=== PATIENT | female | born 1965 | race Caucasian/White ===

== ENCOUNTER 2019-06-14 09:45 | Outpatient (CLI) | payer BC, MEDICARE, SELFPAY ==
--- NOTE | 2019-06-14 11:00 | NEURO_ITS ---
Patient Number: [id number] Impression: # Complains of increasing numbness of legs. # Neuropathy involving bilateral lower extremities. # Needle/EMG exam revealed decreased motor unit potentials in bilateral EDB. Nerve Conduction Studies Anti Sensory Summary Table Stim Site NR Peak (ms) P-T Amp (?V) Site1 Site2 Delta-P (ms) Dist (cm) Alfonzo (m/s) Left Sup Fibular Anti Sensory (Ant Lat Mall) 14 cm 4.5 13.7 14 cm Ant Lat Mall 4.5 16.0 36 Right Sup Fibular Anti Sensory (Ant Lat Mall) 14 cm 3.9 9.5 14 cm Ant Lat Mall 3.9 16.0 41 Left Sural Anti Sensory (Lat Mall) Calf 4.4 28.3 Calf Lat Mall 3.5 16.0 36 Right Sural Anti Sensory (Lat Mall) Calf 3.7 27.7 Calf Lat Mall 3.7 16.0 43 Motor Summary Table Stim Site NR Onset (ms) O-P Amp (mV) Site1 Site2 Delta-0 (ms) Dist (cm) Alfonzo (m/s) Left Peroneal Motor (Vastus Med) Ankle 5.4 1.3 Popit Ankle 10.1 38.0 38 Popit 15.5 1.1 Right Peroneal Motor (Vastus Med) Ankle 5.1 1.0 Popit Ankle 9.3 35.0 38 Popit 14.4 1.0 Left Tibial Motor (Abd Diane Brev) Ankle 5.7 3.0 Knee Ankle 9.1 41.0 45 Knee 14.8 1.6 Right Tibial Motor (Abd Diane Brev) Ankle 5.5 4.0 Knee Ankle 10.2 41.0 40 Knee 15.7 2.7 F Wave Studies NR F-Lat (ms) L-R F-Lat (ms) Left Peroneal (Mrkrs) (EDB) 52.05 0.23 Right Peroneal (Mrkrs) (EDB) 52.28 0.23 Left Tibial (Mrkrs) (Abd Hallucis) 54.56 0.92 Right Tibial (Mrkrs) (Abd Hallucis) 53.64 0.92 EMG Side Muscle Nerve Root Ins Act Fibs Amp Dur Recrt Comment Right AntTibialis Dp Br Fibular L4-5 Nml Nml Nml Nml Nml Right Gastroc Tibial S1-2 Nml Nml Nml Nml Nml Right Fibularis Long Sup Br Fibular L5-S1 Nml Nml Nml Nml Nml Right Flex Dig Long Tibial L5-S2 Nml Nml Nml Nml Nml Right Ext Dig Brev Dp Br Fibular L5, S1 Nml Nml Nml >12ms Reduced Left AntTibialis Dp Br Fibular L4-5 Nml Nml Nml Nml Nml Left Gastroc Tibial S1-2 Nml Nml Nml Nml Nml Left Fibularis Long Sup Br Fibular L5-S1 Nml Nml Nml Nml Nml Left Flex Dig Long Tibial L5-S2 Nml Nml Nml Nml Nml Left Ext Dig Brev Dp Br Fibular L5, S1 Nml Nml Nml >12ms Reduced Right QuadratusFem QuadFemoris L4-5, S1 Nml Nml Nml Nml Nml Left QuadratusFem QuadFemoris L4-5, S1 Nml Nml Nml Nml Nml MTDD
== END 2019-06-14 09:46 | disposition home or self-care (01) ==
PROVIDERS: PCP Internal Medicine; Visit Provider Psychiatry & Neurology Neurology
DX: M79.606 Pain in leg, unspecified (principal); G62.9 Polyneuropathy, unspecified
CPT/HCPCS: 95886; 95910

== ENCOUNTER → 2021-07-15 11:10 | Outpatient (CLI) | payer BC, MEDICARE, SELFPAY ==
--- NOTE | ~2021-07-15 | XR_ITS ---
XR_CERV2-3V_CR 07/15/2021 12:07 Indication: Radiculopathy. Procedure: 3 views of the cervical spine Comparison: No prior studies for comparison. Findings: No fracture, subluxation or dislocation. Vertebral body heights are maintained. No preverte bral soft tissue swelling. Lung apices are normal. Odontoid process is normal. Impression: 1: No significant abnormality of the cervical spine. Reviewed, dictated and finalized at location A. ROLOGIST Impression: 1: No significant abnormality of the cervical spine.
--- NOTE | ~2021-07-15 | XR_ITS ---
XR lumbar spine 2-3V 07/15/2021 12:06 Indication: Low back pain Procedure: 3 views lumbar spine Comparison: 12/06/2003 Findings: Vertebral body heights are maintained. There is mild dextrocurvature of the lumbar spine. P edicles are intact. Sacral foramen are symmetric. There are cholecystectomy clips. No evidence for sp ondylolisthesis. No significant disc narrowing. Impression: 1: Mild dextroscoliosis. Reviewed, dictated and finalized at location A. ONAL INJURY ATTORNEY Impression: 1: Mild dextroscoliosis.
== END ==
PROVIDERS: PCP Internal Medicine; Visit Provider Pain Medicine Interventional Pain Medicine
DX: F41.1 Generalized anxiety disorder (principal); F33.1 Major depressive disorder, recurrent, moderate; M47.26 Other spondylosis with radiculopathy, lumbar region; M47.22 Other spondylosis with radiculopathy, cervical region; M47.23 Other spondylosis with radiculopathy, cervicothoracic region; M47.27 Other spondylosis with radiculopathy, lumbosacral region
CPT/HCPCS: 72040; 72100

== ENCOUNTER → 2021-07-23 13:23 | Outpatient (CLI) | payer BC, MEDICARE, SELFPAY ==
--- NOTE | ~2021-07-23 | MR_ITS ---
EXAMINATION: MR lumbar spine wo con DATE: 07/23/2021 14:24 INDICATION: Radiculopathy, lumbar spine. TECHNIQUE: Magnetic resonance imaging (MRI) of the lumbar spine was performed without intravenous con trast. Sequences included sagittal T2-weighted FSE, sagittal T2-weighted FS FSE, sagittal T1-weighted FSE, and axial T2-weighted FSE. COMPARISON: Lumbar spine MRI 01/01/2004 FINDINGS: There is an 8 mm cyst in right kidney. Bone alignment is normal. There is mild chronic ante rior wedging of T12 vertebral body. Intervertebral disc heights are normal in lumbar spine. The dista l spinal cord signal intensity is normal. The conus medullaris is at L1. The following disc levels ar e specifically discussed: L1-L2: The disc does not extend beyond the endplate margin. There is mild bilateral facet joint osteo arthritis. There is no neural foraminal stenosis. There is no central canal stenosis. L2-L3: The disc does not extend beyond the endplate margin. There is mild bilateral facet joint osteo arthritis. There is no neural foraminal stenosis. There is no central canal stenosis. L3-L4: The disc is bulging. There is mild bilateral facet joint osteoarthritis. There is mild bilater al neural foraminal stenosis. There is mild central canal stenosis. L4-L5: The disc does not extend beyond the endplate margin. There is severe bilateral facet joint ost eoarthritis. There is mild bilateral neural foraminal stenosis. There is no central canal stenosis. L5-S1: There is a central protrusion with annular fissure. There is severe right and moderate left fa cet joint osteoarthritis. There is mild bilateral neural foraminal stenosis. There is mild central ca nal stenosis. IMPRESSION: 1. Mild lumbar spondylosis, stable from 01/01/2004. Reviewed, dictated and finalized at location A. TRANSFER CLERK
== END ==
PROVIDERS: PCP Internal Medicine; Visit Provider Pain Medicine Interventional Pain Medicine
DX: M47.812 Spondylosis without myelopathy or radiculopathy, cervical region (principal); M47.23 Other spondylosis with radiculopathy, cervicothoracic region; M47.22 Other spondylosis with radiculopathy, cervical region; M47.26 Other spondylosis with radiculopathy, lumbar region; M47.27 Other spondylosis with radiculopathy, lumbosacral region; F33.1 Major depressive disorder, recurrent, moderate; F41.1 Generalized anxiety disorder; G89.4 Chronic pain syndrome
CPT/HCPCS: 72148

== ENCOUNTER → 2021-12-25 15:51 | Outpatient (CLI) | payer BC, MEDICARE, SELFPAY ==
--- NOTE | ~2021-12-25 | MR_ITS ---
EXAMINATION: MR cervical spine wo con DATE: 12/25/2021 16:59 INDICATION: Cervical radiculopathy with neck and bilateral arm pain. TECHNIQUE: Magnetic resonance imaging (MRI) of the cervical spine was performed without intravenous c ontrast. Sequences included sagittal T2-weighted FSE, sagittal T2-weighted FS FSE, sagittal T1-weight ed FSE, axial MERGE and axial T2-weighted FSE. COMPARISON: None FINDINGS: Bone alignment is normal. Vertebral body heights are normal. Bone marrow signal intensity is normal . Annular fissure, disc extrusion and mild disc height loss at C5-C6. Cord signal intensity is normal . Visualized cervical soft tissues are unremarkable. The following disc levels are specifically discu ssed: C2-C3: The disc does not extend beyond the endplate margin. There is no uncovertebral joint osteoarth ritis. There is mild left facet joint osteoarthritis. There is no neural foraminal stenosis. There is no central canal stenosis. C3-C4: The disc does not extend beyond the endplate margin. There is no uncovertebral joint osteoarth ritis. There is mild bilateral facet joint osteoarthritis. There is no neural foraminal stenosis. The re is no central canal stenosis. C4-C5: The disc does not extend beyond the endplate margin. There is mild left uncovertebral joint os teoarthritis. There is mild left and minimal right facet joint osteoarthritis. There is no neural for aminal stenosis. There is no central canal stenosis. C5-C6: Annular fissure with disc extrusion centered at the left paracentral region and with disc mate rial extending up to 2 mm above and 4 mm below level of the inferior endplate of C5 and superior end plate of C6 respectively. The disc extrusion indents the left ventral surface of the cord. There is m ild bilateral uncovertebral joint osteoarthritis. There is minimal right facet joint osteoarthritis. There is mild bilateral neural foraminal stenosis. There is mild central canal stenosis measuring sub -8 mm AP in the mid sagittal plane. C6-C7: Disc is mildly bulging. There is no uncovertebral joint osteoarthritis. There is no facet join t osteoarthritis. There is no neural foraminal stenosis. There is no central canal stenosis. C7-T1: The disc does not extend beyond the endplate margin. There is no uncovertebral joint osteoarth ritis. There is no facet joint osteoarthritis. There is no neural foraminal stenosis. There is no jerica tral canal stenosis. IMPRESSION: 1. Mild cervical spondylosis most notable for left paracentral disc extrusion which mildly narrows th e central canal and indents the left ventral surface of the cord at C5-C6. Reviewed, dictated and finalized at location A. IMPRESSION: 1. Mild cervical spondylosis most notable for left paracentral disc extrusion w hich mildly narrows the central canal and indents the left ventral surface of t he cord at C5-C6.
== END ==
PROVIDERS: PCP Internal Medicine; Visit Provider Pain Medicine Interventional Pain Medicine
DX: M47.22 Other spondylosis with radiculopathy, cervical region (principal)
CPT/HCPCS: 72141

== ENCOUNTER → 2022-01-01 15:19 | Outpatient (CLI) | payer BC, MEDICARE, SELFPAY ==
--- NOTE | ~2022-01-01 | CT_ITS ---
EXAMINATION: CT chest abdomen pelvis w con DATE: 01/01/2022 16:02 INDICATION: Cough and abdominal pain. TECHNIQUE: Computed tomography (CT) of the chest, abdomen, and pelvis was performed with 100 mL Omnip aque 350 intravenous contrast. Automated exposure control and iterative reconstruction technique were employed. The dose-length product was 351.72 mGy-cm. COMPARISON: CT 12/14/2018 FINDINGS: CHEST CT: There is mild atelectasis in right middle lobe. No pleural effusion. The heart size is normal. No per icardial effusion. ABDOMEN/PELVIS CT: The liver is normal. There are changes of cholecystectomy. The spleen, pancreas, and adrenal glands a re normal. There is cortical thinning of the kidneys. There is hypoenhancement of superior pole of ri ght kidney. There are no dilated loops of bowel. The appendix is normal. There are surgical changes o f the stomach. There are no pathologically enlarged lymph nodes. There is no free intraperitoneal flu id. There is mild thoracolumbar spondylosis. IMPRESSION: 1. Hypoenhancement of superior pole of right kidney, consistent with infarct versus pyelonephritis. Reviewed, dictated and finalized at location A. IMPRESSION: 1. Hypoenhancement of superior pole of right kidney, consistent with infarct ve rsus pyelonephritis.
[2022-01-01 15:43] LABS: Estimated Glomerular Filt Rate > 60
== END ==
PROVIDERS: PCP Internal Medicine; Visit Provider Internal Medicine
DX: R10.9 Unspecified abdominal pain (principal); R05.9 Cough, unspecified
CPT/HCPCS: 71260; 74177; Q9967

== ENCOUNTER 2022-01-05 19:02 | Emergency (ER) | payer BC, MEDICARE, SELFPAY ==
[2022-01-05 19:11] VITALS: BP 146/117; PULSE 91; RESP 18; TEMP 36.9; O2SAT 99
[2022-01-05 19:18] LABS: Glucose Point of Care > 500 mg/dl (65-105)
--- NOTE | 2022-01-05 19:27 | ED.RECABL ---
HPI - Recheck/Abnormal Lab/Rx General Chief Complaint: Recheck/Abnormal Lab/Rx Stated Complaint: high blood sugar Time Seen by Provider: 01/05/22 19:22 History of Present Illness HPI narrative: Pt is a 56 y/o female, presents to ED via POV with spouse transporting, with C/O elevated serum glucose, found on outpatient laboratories ordered by her PCP after she noticed her FSBS were reading critical high and she began experiencing urinary frequency for the past week. She denies associated fevers or chills, NVDC or urinary burning. She is taking Metformin 1000 mg BID and denies missing doses. She denies any additional associated symptoms or modifying factors. Related Data Home Medications Medication Instructions Recorded Confirmed metformin 1,000 mg tablet 1,000 mg PO BID 09/26/20 09/26/20 Allergies Allergy/AdvReac Type Severity Reaction Status Date / Time No Known Allergies Allergy Verified 09/26/20 10:35 Review of Systems Constitutional: Comments: denies fevers, chills, weight loss or diaphoresis Gastrointestinal: Comments: no NVDC Genitourinary: Comments: refer to [facility] Family History Family History Father Cerebrovascular accident, Onset Age: 96 Patient's father is Mother Family history of diabetes mellitus in first degree relative Family history of malignant neoplasm of breast in first degree relative, Onset Age: 88 Patient's mother is Social History Social History (Updated 09/26/20 @ 10:38 by Tarah Murdock MA) Smoking status: Current some day smoker Second hand tobacco smoke exposure: No Alcohol intake: never Exam Const: General: no acute distress and alert Orientation/consciousness: patient oriented x3 Limitations: no limitations Other: pt appears older than stated age, pleasant non toxic appearing HENMT: Head: normal to inspection Ears: external ears normal General nose exam: Normal external nose present Other: poor dentition Eyes: Conjunctivae: conjunctivae normal Pupils: Equal, round and reactive pupils present EOM: EOMs intact bilaterally Direct Ophthalmoscopy: no photophobia Neck: Neck: normal visual inspection, no lymphadenopathy and no meningeal signs Resp: Effort & Inspection: normal respiratory effort Auscultation: clear to auscultation bilaterally Cardio: Rate: regular rate Rhythm: regular rhythm GI: GI Palp: Yes Soft to palpation, No Tenderness to palpation present (GI), No Guarding due to palpation present (GI), No Rigid due to palpation, No Hernia present, No Palpable mass present and No Rebound tenderness present Auscultation: normal bowel sounds Back/Spine/Pelvis: Back: no CVA tenderness Course Vital Signs Vital signs: Vital Signs Temperature 36.9 C 01/05/22 19:11 Pulse Rate 91 01/05/22 19:11 Respiratory Rate 18 01/05/22 19:11 Blood Pressure 146/117 H 01/05/22 19:11 Pulse Oximetry 99 01/05/22 19:11 Oxygen Delivery Room Air 01/05/22 19:11 Temperature 36.9 C 01/05/22 19:11 Pulse Rate 66 01/05/22 23:35 Respiratory Rate 13 01/05/22 23:35 Blood Pressure 107/73 01/05/22 23:35 Pulse Oximetry 100 01/05/22 23:35 Oxygen Delivery Room Air 01/05/22 19:11 MDM - Recheck/Abnormal Lab/Rx MDM Narrative Medical decision making narrative: Pt's blood glucose is improving, now < 400 with IVF. Urinary tract infection is present. Pt is offered admission and insulin to treat hyperglycemia however, she refuses; noting she does not want insulin and will not use needles to deliver any medication for diabetes management. She additionally reports she will not take any medications aside from Metformin. She is advised of risks/benefits and her spouse at is also present for this discussion. They agree to FU with Dr Mancini but will sign out AMA as they are not completing recommended treatment. Lab Data Result diagrams:
[2022-01-05] MEDS: SODIUM CHLORIDE 0.9% IV 1,000 ML 999 ML IV CONT ×2 (19:41→21:31)
[2022-01-05 19:46] LABS: Basophils Percent Auto 0.4 % (0.2-1.2); Eosinophils Absolute Auto 0.1 K/mm3 (0-0.3); Eosinophils Percent Auto 0.7 % (0-4.4); Hematocrit 32.5 % (37.0-47.0); Hemoglobin 11.2 g/dL (12.0-15.0); Immature Granulocyte Absolute 0.02 K/mm3 (0.00-0.031); Immature Granulocyte Percent A 0.3 % (0-0.5); Lymphocytes Absolute Auto 3.09 K/mm3 (0.9-3.2); Lymphocytes Percent Auto 42.6 % (18.3-44.2); Mean Corpuscular HGB Conc 34.5 g/dl (32-36); Mean Corpuscular Hemoglobin 28.3 pg (26-34); Mean Corpuscular Volume 82.1 fl (80-100); Mean Platelet Volume 8.7 fl (7.4-10.4); Monocytes Absolute Auto 0.3 K/mm3 (0.1-0.6); Monocytes Percent Auto 4.7 % (2.6-8.5); Neutrophils Absolute Auto 3.7 K/mm3 (1.3-6.7); Neutrophils Percent Auto 51.3 % (45.5-73.1); Platelet Count Result 287 k/mm3 (150-375); Red Blood Count 3.96 M/mm3 (4.2-5.4); Red Cell Distribution Width 12.8 % (11.5-14.5); White Blood Count 7.3 K/mm3 (4.5-10.0)
[2022-01-05 20:06] LABS: Beta-Hydroxybutyrate/Acetoacetate 0.14 mmol/L (0.02-0.27)
[2022-01-05 20:27] LABS: Alanine Aminotransferase 57 U/L (6-35); Albumin Level 3.7 g/dL (3.5-5.1); Alkaline Phosphatase 96 U/L (38-126); Anion Gap 8 mmol/L (8-16); Aspartate Amino Transferase 38 U/L (14-36); Bilirubin,Total 0.5 mg/dL (0.2-1.3); Blood Urea Nitrogen 13 mg/dL (7-17); Calcium 8.9 mg/dL (8.4-10.2); Carbon Dioxide 31 mmol/L (22-30); Chloride 84 mmol/L (98-107); Estimated CRCL calculation 58 ml/min; Estimated Glomerular Filt Rate > 60; Glucose 673 mg/dL (65-110); Magnesium 1.8 mg/dL (1.6-2.3); Phosphorus 3.9 mg/dL (2.5-4.5); Potassium 4.2 mmol/L (3.4-5.0); Sodium 123 mmol/L (137-145)
[2022-01-05 21:31] LABS: Glucose Point of Care 477 mg/dl (65-105)
[2022-01-05 22:37] LABS: Appearance Urine Slightly Cloudy (Clear); Bilirubin Urine Negative (Negative); Blood Urine Negative (Negative); Color Urine Yellow (Yellow); Glucose Urine UA 3+ mg/dL (Negative); Ketones Urine Negative (Negative); Leukocyte Esterase Ur Trace LEU/UL (Negative); Nitrate Urine Positive (Negative); Protein Urine Negative (Negative); Specific Grav Ur <= 1.005 (1.001-1.035); Urobilinogen Urine 0.2 mg/dL (<2.0)
[2022-01-05 22:41] LABS: Bacteria Urine Trace /hpf; Mucus Urine Rare /lpf; Squamous Epithelial Cell Urine Few /hpf (Few); WBC Urine 21-30 /hpf
[2022-01-05 22:58] LABS: Add Urine Microscopic? YES
[2022-01-05 23:35] VITALS: BP 107/73; PULSE 66; PULSE 67; RESP 10; RESP 13; O2SAT 100
[2022-01-05 23:45] VITALS: BP 107/72; PULSE 67; RESP 9; O2SAT 100
--- NOTE | 2022-01-05 23:58 | PC.NURSE ---
Patient refused catheter several times. NATASHA Tabor notified.
[2022-01-06] VITALS: BP 126/84; PULSE 74; RESP 12; O2SAT 100
--- NOTE | 2022-01-06 | PC.NURSE ---
Patient stated to this nurse. I dont want to take any other medications for my diabetes and i will not take insulin EDP notified about this.
[2022-01-06 00:15] VITALS: BP 116/83; PULSE 70; RESP 12
--- NOTE | 2022-01-06 00:27 | PC.NURSE ---
assumed care of pt. pt resting on stretcher at this time.
[2022-01-06 00:30] VITALS: BP 116/84; PULSE 75; RESP 15; O2SAT 100
[2022-01-06 00:31] LABS: Glucose Point of Care 342 mg/dl (65-105)
[2022-01-06 00:45] VITALS: BP 110/81; PULSE 67; RESP 18; O2SAT 100
== END 2022-01-06 01:07 | disposition left against medical advice (07) ==
PROVIDERS: Emergency Provider Nurse Practitioner Family; PCP Internal Medicine
DX: E11.65 Type 2 diabetes mellitus with hyperglycemia (principal); N39.0 Urinary tract infection, site not specified; Z79.84 Long term (current) use of oral hypoglycemic drugs; F17.200 Nicotine dependence, unspecified, uncomplicated
CPT/HCPCS: 36415; 80053; 81001; 82010; 82948; 83735; 84100; 85025; 87077; 87086; 87186; 96361; 96365; 99284; J0696; J7030

== ENCOUNTER 2022-02-20 18:20 | Emergency (ER) | payer BC, MEDICARE, SELFPAY ==
[2022-02-20] VITALS (19 sets, daily range): BP systolic 146–165; BP diastolic 90–115; PULSE 92–116; RESP 13–25; TEMP 36.5; O2SAT 92–100
--- NOTE | ~2022-02-20 | XR_ITS ---
EXAMINATION: XR chest 1V Exam Date/Time: 02/20/2022 19:15 CDT HISTORY: weakness Comparison: 10/01/2010. RESULT: Lines, tubes, and devices: None. Lungs and pleura: Clear. Cardiomediastinal silhouette: Stable. Other: No acute osseous or upper abdominal finding. IMPRESSION: No acute cardiopulmonary process. Reviewed, dictated and finalized at location K.
--- NOTE | ~2022-02-20 | XR_ITS ---
EXAM: XR hip LT 2V w AP pelvis DATE: 02/20/2022 19:21 HISTORY: fall . COMPARISON: 12/06/2003. FINDINGS: Normal mineralization. No fracture or dislocation. No lytic or blastic lesion. Mild degene rative changes in the lumbar spine and bilateral hips. Iliac wing enthesopathy. No erosion or periost eal change. Soft tissues within normal limits. IMPRESSION: No acute osseous finding in the pelvis or left hip. Reviewed, dictated and finalized at location K.
--- NOTE | ~2022-02-20 | CT_ITS ---
EXAMINATION: CT brain wo con DATE: 02/20/2022 19:17 INDICATION: head injury . TECHNIQUE: Computed tomography (CT) of the head was performed without intravenous contrast. The mA wa s adjusted according to patient size. Iterative reconstruction technique was employed. The dose-lengt h product was 605.33 mGy-cm. COMPARISON: 12/14/2018 FINDINGS: No acute intracranial hemorrhage or extra-axial fluid collection. No hydrocephalus, mass, or herniation. No acute ischemic infarct. Unremarkable dural venous sinus attenuation. No acute osseous abnormality. Soft tissue swelling over the left orbit. The aerated spaces are clear. Mild atrophy and chronic white matter change. Atherosclerotic intracranial calcification. Right parie lorenzo encephalomalacia, near the vertex. IMPRESSION: No acute intracranial process. Reviewed, dictated and finalized at location K.
--- NOTE | 2022-02-20 18:33 | PC.NURSE ---
Bedside Glucose 202 at 1823
--- NOTE | 2022-02-20 18:51 | ECG_ITS ---
Measurements Intervals [place] Rate: 96 P: 76 [place]: 143 QRS: 60 QRSD: 94 T: 80 QT: 364 QTc: 462 Interpretive Statements SINUS RHYTHM WITHIN NORMAL LIMITS NO PREVIOUS ECG AVAILABLE FOR COMPARISON Electronically Signed On 02-21-2022 10:17:10 CDT by Prieto Sr M.D.
[2022-02-20] MEDS: LACTATED RINGERS 1,000 ML 999 ML IV CONT (19:26)
[2022-02-20 19:39] LABS: Basophils Percent Auto 0.2 % (0.2-1.2); Eosinophils Percent Auto 0.1 % (0-4.4); Hematocrit 37.8 % (37.0-47.0); Hemoglobin 12.5 g/dL (12.0-15.0); Immature Granulocyte Absolute 0.03 K/mm3 (0.00-0.031); Immature Granulocyte Percent A 0.3 % (0-0.5); Lymphocytes Absolute Auto 1.91 K/mm3 (0.9-3.2); Lymphocytes Percent Auto 21.7 % (18.3-44.2); Mean Corpuscular HGB Conc 33.1 g/dl (32-36); Mean Corpuscular Hemoglobin 28.3 pg (26-34); Mean Corpuscular Volume 85.7 fl (80-100); Mean Platelet Volume 7.9 fl (7.4-10.4); Monocytes Absolute Auto 0.3 K/mm3 (0.1-0.6); Monocytes Percent Auto 3.9 % (2.6-8.5); Neutrophils Absolute Auto 6.5 K/mm3 (1.3-6.7); Neutrophils Percent Auto 73.8 % (45.5-73.1); Platelet Count Result 312 k/mm3 (150-375); Red Blood Count 4.41 M/mm3 (4.2-5.4); Red Cell Distribution Width 13.2 % (11.5-14.5); White Blood Count 8.8 K/mm3 (4.5-10.0)
[2022-02-20 19:51] LABS: Partial Thromboplastin Time 27.2 SECONDS (22.3-36.8)
[2022-02-20 19:53] LABS: Ethanol < 10 mg/dL (<10)
[2022-02-20 20:07] LABS: Add Urine Microscopic? YES; Appearance Urine Cloudy (Clear); Bacteria Urine Trace /hpf; Bilirubin Urine Negative (Negative); Blood Urine Negative (Negative); Color Urine Yellow (Yellow); Glucose Urine UA 1+ mg/dL (Negative); Ketones Urine Negative (Negative); Leukocyte Esterase Ur Negative LEU/UL (Negative); Mucus Urine Rare /lpf; Nitrate Urine Positive (Negative); Protein Urine Negative (Negative); RBC Urine 0-2 /hpf (0-2); Urobilinogen Urine Negative mg/dL (<2.0); WBC Urine 0-3 /hpf
[2022-02-20 20:10] LABS: INR 0.9
[2022-02-20 20:11] LABS: Glucose Point of Care 96 mg/dl (65-105)
[2022-02-20 20:17] LABS: Alanine Aminotransferase 51 U/L (6-35); Albumin Level 4.4 g/dL (3.5-5.1); Alkaline Phosphatase 120 U/L (38-126); Anion Gap 8 mmol/L (8-16); Aspartate Amino Transferase 73 U/L (14-36); Bilirubin,Total 0.4 mg/dL (0.2-1.3); Blood Urea Nitrogen 13 mg/dL (7-17); Calcium 9.1 mg/dL (8.4-10.2); Carbon Dioxide 30 mmol/L (22-30); Chloride 95 mmol/L (98-107); Creatine Kinase 345 U/L (30-135); Estimated Glomerular Filt Rate > 60; Glucose 125 mg/dL (65-110); Magnesium 1.5 mg/dL (1.6-2.3); Sodium 133 mmol/L (137-145)
--- NOTE | 2022-02-20 20:23 | ED.RECABL ---
HPI - Recheck/Abnormal Lab/Rx General Chief Complaint: Recheck/Abnormal Lab/Rx Stated Complaint: low blood sugar Time Seen by Provider: 02/20/22 18:30 Source: patient, family and RN notes reviewed Mode of arrival: EMS History of Present Illness HPI narrative: This is a 56 year old female with history of DM and CVA who presents from home for evaluation of low blood sugar. Patient lives at home with her . He states patient woke up with him at 4 am this morning. He states he cooked her breakfast and she was fine, so he left for work. He got home from work this afternoon and he found patient on floor. He states it appearred that she slid out of her recliner and she was confused. He called EMS and she was found to have blood sugar of 49. EMS gave patient d10 and nurse reports her blood sugar is 210. Patient is unsure what happened. She does not remember when she last ate anything. She was in ER 5 weeks ago for hyperglycemia, and she left ER AMA. Her states she was recently seen by her PCP And they increased her night dose of insulin from 25 units to 35 units. They also reports patient fell 2 days ago and she was confused briefly. She was back to normal after taking a nap. He states she was normal this morning. Patient's only complaint is that she is cold. Related Data Home Medications Medication Instructions Recorded Confirmed metformin 1,000 mg tablet 1,000 mg PO BID 09/26/20 09/26/20 alprazolam 2 mg tablet mg 02/20/22 cyclobenzaprine 10 mg tablet mg 02/20/22 dextroamphetamine-amphetamine 30 02/20/22 mg tablet insulin degludec 100 unit/mL (3 unit subcut 02/20/22 mL) subcutaneous pen (Tresiba FlexTouch U-100 insulin) lamotrigine 150 mg tablet mg 02/20/22 levothyroxine 100 mcg tablet mcg 02/20/22 oxcarbazepine 150 mg tablet mg 02/20/22 Allergies Allergy/AdvReac Type Severity Reaction Status Date / Time No Known Allergies Allergy Verified 02/20/22 21:04 Review of Systems Review of Systems: ROS unobtainable: Yes unobtainable due to mental status Constitutional: Constitutional: Reports chills ENT: Denies nasal congestion Cardiovascular: Cardiovascular: Denies chest pain, Denies radiating jaw, neck or arm pain and Denies slow heart rate Respiratory: Respiratory: Denies chest congestion, Denies cough and Denies dyspnea Gastrointestinal: Gastrointestinal: Denies abdominal pain, Denies nausea and Denies vomiting [facility] Past Medical History Medical History CVA (cerebral vascular accident) Diabetes mellitus Family History Family History Father Cerebrovascular accident, Onset Age: 96 Patient's father is Mother Family history of diabetes mellitus in first degree relative Family history of malignant neoplasm of breast in first degree relative, Onset Age: 88 Patient's mother is Social History Social History (Updated 09/26/20 @ 10:38 by Tarah Murdock MA) Smoking status: Current some day smoker Second hand tobacco smoke exposure: No Alcohol intake: never Exam Const: General: no acute distress and alert Nutritional Appearance: thin Orientation/consciousness: patient oriented x3 HENMT: Head: normal to inspection Ears: external ears normal Mouth: Yes lip normal and Yes moist mucous membranes Teeth and gingiva: abnormal tooth and associated gingiva Eyes: Conjunctivae: conjunctivae normal Pupils: Equal, round and reactive pupils present EOM: EOMs intact bilaterally Neck: Neck: normal visual inspection Chest: Chest palpation & inspection: normal inspection of the chest Resp: Effort & Inspection: normal respiratory effort Auscultation: clear to auscultation bilaterally Cardio: Rate: regular rate Rhythm: regular rhythm Heart sounds: no murmurs GI: GI Palp: Yes Soft to palpation, No Tende
[2022-02-20 20:26] LABS: Influenza A QL RT-PCR Negative (Negative); Influenza B QL RT-PCR Negative (Negative); SARS-CoV-2 RNA PCR Negative
[2022-02-20 20:29] LABS: Troponin I < 0.012 ng/mL (0.000-0.034)
[2022-02-20 20:30] LABS: Amphetamine Screen Urine Negative (Negative); Barbiturate Screen Urine Negative (Negative); Benzodiazepines Screen Urine Negative (Negative); Cannabinoid Screen Urine Positive (Negative); Cocaine Screen Urine Negative (Negative); Methadone Screen Urine Negative (Negative); Opiate Screen Urine Negative (Negative); Phencyclidine Screen Urine Negative (Negative)
[2022-02-20 20:53] LABS: Lactic Acid Reflex 1.4 mmol/L (0.7-2.0)
[2022-02-20 21:42] LABS: Glucose Point of Care 115 mg/dl (65-105)
--- NOTE | 2022-02-20 21:55 | PC.NURSE ---
PCT administered road test in hallway per MD orders. Pt successfully ambulated in hallway, pt was not symptomatic while walking, RN and MD notified.
[2022-02-20] MEDS: MAGNESIUM OXIDE 200 MG TABLET PO (22:17)
[2022-02-20] MEDS: NITROFURANTOIN MONOHYD MACROCR 100 MG CAP PO (22:17)
[2022-02-20] MEDS: oxyCODONE/ACETAMINOPHEN (*CRX) 5-325 MG TABLET 1 TABLET PO (22:17)
== END 2022-02-20 23:22 | disposition home or self-care (01) ==
PROVIDERS: Emergency Provider General Practice; PCP Internal Medicine
DX: E11.649 Type 2 diabetes mellitus with hypoglycemia without coma (principal); R29.6 Repeated falls; Z20.822 Contact with and (suspected) exposure to COVID-19; Z86.73 Personal history of transient ischemic attack (TIA), and cerebral infarction without residual deficits; F17.200 Nicotine dependence, unspecified, uncomplicated; Z79.84 Long term (current) use of oral hypoglycemic drugs; Z79.4 Long term (current) use of insulin
CPT/HCPCS: 36415; 70450; 71045; 73502; 80053; 80307; 81001; 82550; 82948; 83605; 83735; 84484; 85025; 85610; 85730; 87077; 87086; 87186; 87502; 93005; 96360; 96361; 99284; A9270; C9803; J7120; U0003; U0005

== ENCOUNTER 2022-02-23 22:35 | Observation (INO) | payer BC, MEDICARE, SELFPAY ==
--- NOTE | ~2022-02-23 | MR_ITS ---
EXAMINATION: MR lumbar spine wo con DATE: 02/26/2022 13:03 INDICATION: Gait dysfunction. TECHNIQUE: Magnetic resonance imaging (MRI) of the lumbar spine was performed without intravenous con trast. COMPARISON: Lumbar spine MRI 07/23/2021 FINDINGS: There is 6 degrees dextrocurvature of thoracolumbar spine. There are Schmorl's nodes at mul tiple levels. There is mild chronic anterior wedging of T12 vertebral body. Intervertebral disc heigh ts are normal. The distal spinal cord signal intensity is normal. The conus medullaris is at L1. The following disc levels are specifically discussed: L1-L2: The disc does not extend beyond the endplate margin. There is mild bilateral facet joint osteo arthritis. There is no neural foraminal stenosis. There is no central canal stenosis. L2-L3: The disc does not extend beyond the endplate margin. There is mild bilateral facet joint osteo arthritis. There is no neural foraminal stenosis. There is no central canal stenosis. L3-L4: The disc is bulging. There is moderate bilateral facet joint osteoarthritis. There is mild jacki ateral neural foraminal stenosis. There is no central canal stenosis. L4-L5: The disc does not extend beyond the endplate margin. There is severe bilateral facet joint ost eoarthritis. There is no neural foraminal stenosis. There is no central canal stenosis. L5-S1: The disc is bulging and has an annular fissure. There is severe bilateral facet joint osteoart hritis. There is mild bilateral neural foraminal stenosis. There is mild central canal stenosis. IMPRESSION: 1. Mild lumbar spondylosis, stable from 07/23/2021. Reviewed, dictated and finalized at location A.
--- NOTE | ~2022-02-23 | MR_ITS ---
EXAMINATION: MR thoracic spine wo con DATE: 02/26/2022 13:04 INDICATION: Gait dysfunction. TECHNIQUE: Magnetic resonance imaging (MRI) of the thoracic spine was performed without intravenous c ontrast. COMPARISON: None FINDINGS: There is 14 degrees levoscoliosis of thoracic spine. There is a chronic compression fractur e of T3 with 1/5 loss of height. There are Schmorl's nodes at multiple levels in lower thoracic spine . There is mild chronic anterior wedging of T10-T12 vertebral bodies. There is mildly decreased disc height at T7-T8 and T8-T9. At T2-T3, there is a right central protrusion with mild central canal sten osis. At T7-T8, there is a central extrusion with mild central canal stenosis and ventral indentation of the spinal cord. At T8-T9, there is a central extrusion with mild central canal stenosis and vent ral indentation of the spinal cord. At T9-T10, there is a left central extrusion with mild central ca nal stenosis. There is multilevel facet joint osteoarthritis, severe on the right at T4-T5 and T5-T6 and on the left at T1-T2 and T7-T8. On the right, there is mild neural foraminal stenosis at T2-T3, T 4-T5, T5-T6, and T7-T8. On the left, there is mild neural foraminal stenosis at T7-T8. The spinal cor d signal intensity is normal. IMPRESSION: 1. Mild thoracic spondylosis. 2. Thoracic levoscoliosis. Reviewed, dictated and finalized at location A.
--- NOTE | ~2022-02-23 | MR_ITS ---
EXAMINATION: MR brain/brain stem wo con DATE: 02/26/2022 13:03 INDICATION: Gait dysfunction. Dysmetria. TECHNIQUE: Magnetic resonance imaging (MRI) of the brain and brainstem was performed intravenous cont rast. COMPARISON: Brain MRI 10/07/2009 FINDINGS: There is a small old infarct in right cerebellum. There is an old infarct in right parietal lobe. There is no intracranial hemorrhage, acute infarction, or abnormal intracranial mass lesion. T he ventricles are normal in size. There are likely changes of ocular lens replacement surgeries. Ther e is mild mucosal thickening in the ethmoid sinuses. The mastoid air cells are normal. IMPRESSION: 1. 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 Reviewed, dictated and finalized at location A.
--- NOTE | ~2022-02-23 | XR_ITS ---
EXAMINATION: XR chest 1V portable DATE: 02/23/2022 23:10 INDICATION: Weakness. TECHNIQUE: A single frontal view of the chest was obtained. COMPARISON: Chest single view 02/20/2022 FINDINGS: There is no pneumonia, pleural effusion, or pneumothorax. The heart size is normal. Skinfol ds overlie the chest bilaterally. Surgical clips in the right upper quadrant are likely from cholecys tectomy. IMPRESSION: 1. No acute cardiopulmonary disease. Reviewed, dictated and finalized at location A.
--- NOTE | ~2022-02-23 | MR_ITS ---
EXAMINATION: MR cervical spine wo con DATE: 02/26/2022 13:03 INDICATION: Gait dysfunction. TECHNIQUE: Magnetic resonance imaging (MRI) of the cervical spine was performed without intravenous c ontrast. Sequences included sagittal T2-weighted FSE, sagittal T2-weighted FS FSE, sagittal T1-weight ed FSE, axial MERGE, and axial T2-weighted FSE. COMPARISON: Cervical spine MRI 12/25/2021 FINDINGS: There is 10 degrees dextroscoliosis of cervicothoracic spine. Vertebral body heights are no rmal. There is mildly decreased disc height at C5-C6. There is increased T2-weighted signal intensity in the spinal cord at C5-C6. The following disc levels are specifically discussed: C2-C3: The disc does not extend beyond the endplate margin. There is no uncovertebral joint osteoarth ritis. There is no facet joint osteoarthritis. There is no neural foraminal stenosis. There is no jerica tral canal stenosis. C3-C4: The disc does not extend beyond the endplate margin. There is no uncovertebral joint osteoarth ritis. There is mild left facet joint osteoarthritis. There is no neural foraminal stenosis. There is no central canal stenosis. C4-C5: There is a central extrusion. There is mild bilateral uncovertebral joint osteoarthritis. Ther e is mild left facet joint osteoarthritis. There is mild bilateral neural foraminal stenosis. There i s mild central canal stenosis. C5-C6: The disc is bulging with superimposed left central extrusion. There is moderate bilateral unco vertebral joint osteoarthritis. There is mild bilateral facet joint osteoarthritis. There is mild rig ht and moderate left neural foraminal stenosis. There is moderate central canal stenosis with ventral and dorsal indentation of the spinal cord. C6-C7: There is a central protrusion. There is no uncovertebral joint osteoarthritis. There is mild l eft facet joint osteoarthritis. There is no neural foraminal stenosis. There is no central canal sten osis. C7-T1: The disc does not extend beyond the endplate margin. There is no uncovertebral joint osteoarth ritis. There is no facet joint osteoarthritis. There is no neural foraminal stenosis. There is no jerica tral canal stenosis. IMPRESSION: 1. Myelomalacia at C5-C6. 2. Moderate cervical spondylosis, worst at C5-C6. Reviewed, dictated and finalized at location A.
[2022-02-23 22:34] VITALS: BP 146/100; PULSE 108; RESP 23; TEMP 36.4; O2SAT 97
[2022-02-23 22:43] LABS: Glucose Point of Care 164 mg/dl (65-105)
[2022-02-23 23:38] LABS: Basophils Percent Auto 0.2 % (0.2-1.2); Eosinophils Absolute Auto 0.1 K/mm3 (0-0.3); Eosinophils Percent Auto 0.6 % (0-4.4); Hematocrit 38.2 % (37.0-47.0); Hemoglobin 12.7 g/dL (12.0-15.0); Immature Granulocyte Absolute 0.03 K/mm3 (0.00-0.031); Immature Granulocyte Percent A 0.4 % (0-0.5); Lymphocytes Absolute Auto 1.49 K/mm3 (0.9-3.2); Lymphocytes Percent Auto 17.8 % (18.3-44.2); Mean Corpuscular HGB Conc 33.2 g/dl (32-36); Mean Corpuscular Hemoglobin 28.3 pg (26-34); Mean Corpuscular Volume 85.3 fl (80-100); Mean Platelet Volume 7.9 fl (7.4-10.4); Monocytes Absolute Auto 0.3 K/mm3 (0.1-0.6); Monocytes Percent Auto 3.8 % (2.6-8.5); Neutrophils Absolute Auto 6.5 K/mm3 (1.3-6.7); Neutrophils Percent Auto 77.2 % (45.5-73.1); Platelet Count Result 312 k/mm3 (150-375); Red Blood Count 4.48 M/mm3 (4.2-5.4); Red Cell Distribution Width 13.1 % (11.5-14.5); White Blood Count 8.4 K/mm3 (4.5-10.0)
[2022-02-23 23:52] LABS: Anion Gap 12 mmol/L (8-16); Blood Urea Nitrogen 18 mg/dL (7-17); Calcium 8.7 mg/dL (8.4-10.2); Carbon Dioxide 28 mmol/L (22-30); Chloride 94 mmol/L (98-107); Estimated CRCL calculation 82 ml/min; Estimated Glomerular Filt Rate > 60; Glucose 280 mg/dL (65-110); Potassium 3.9 mmol/L (3.4-5.0); Sodium 134 mmol/L (137-145)
[2022-02-23] MEDS: SODIUM CHLORIDE 0.9% IV 1,000 ML 999 ML IV CONT (23:59)
[2022-02-24 00:08] LABS: Add Urine Microscopic? YES; Appearance Urine Clear (Clear); Bacteria Urine Trace /hpf; Bilirubin Urine Negative (Negative); Blood Urine 1+ (Negative); Color Urine Yellow (Yellow); Glucose Urine UA Negative (Negative); Ketones Urine Negative (Negative); Leukocyte Esterase Ur Negative LEU/UL (Negative); Mucus Urine Rare /lpf; Nitrate Urine Positive (Negative); Protein Urine Negative (Negative); RBC Urine 0-2 /hpf (0-2); Specific Grav Ur 1.019 (1.001-1.035); Urobilinogen Urine Negative mg/dL (<2.0)
--- NOTE | 2022-02-24 00:15 | ED.GENADULT ---
HPI - General Adult General Chief complaint: Recheck/Abnormal Lab/Rx Stated complaint: HYPOGLYCEMIA Time Seen by Provider: 02/23/22 22:46 History of Present Illness HPI narrative: Patient is a 56-year-old female who presents ER with diabetic emergency. Blood sugar at home 37 and patient received D10. Blood sugar for EMS 299 after dextrose administration. Patient reports she took some insulin and metformin this evening without eating. Denies fevers chills or sweats. No abdominal pain or nausea or vomiting. Patient has history of CVA reports she has some chronic weakness related to this. Patient is underweight and has areas of bruising to the body as well as multiple skin sores. Patient denies intravenous drug abuse. Related Data Home Medications Medication Instructions Recorded Confirmed metformin 1,000 mg tablet 1,000 mg PO BID 09/26/20 09/26/20 alprazolam 2 mg tablet mg 02/20/22 cyclobenzaprine 10 mg tablet mg 02/20/22 dextroamphetamine-amphetamine 30 02/20/22 mg tablet insulin degludec 100 unit/mL (3 unit subcut 02/20/22 mL) subcutaneous pen (Tresiba FlexTouch U-100 insulin) lamotrigine 150 mg tablet mg 02/20/22 levothyroxine 100 mcg tablet mcg 02/20/22 oxcarbazepine 150 mg tablet mg 02/20/22 Allergies Allergy/AdvReac Type Severity Reaction Status Date / Time No Known Allergies Allergy Verified 02/23/22 22:42 Review of Systems Review of Systems: All systems reviewed & are unremarkable except as noted in HPI and below Constitutional: Constitutional: Denies chills, Denies fatigue and Denies fever(s) ENT: Denies nasal congestion and Denies sore throat Cardiovascular: Cardiovascular: Denies chest pain, Denies rapid heart rate and Denies radiating jaw, neck or arm pain Respiratory: Respiratory: Denies cough, Denies dyspnea and Denies wheezing Gastrointestinal: Gastrointestinal: Denies abdominal pain, Denies nausea and Denies vomiting Genitourinary: Genitourinary: Denies nocturia and Denies dysuria Musculoskeletal: Musculoskeletal: Reports back pain (Chronic), Denies arthralgias and Denies joint swelling Integumentary/Breasts: Skin/Breast: Denies erythema, Denies rash and Reports skin ulcer Comments: Scattered bruising PMFSH Past Medical History Medical History (Updated 02/24/22 @ 04:44 by Candido Hall MD) Anxiety CVA (cerebral vascular accident) Depression Diabetes mellitus Hyperlipidemia Hypertension Hypothyroidism Surgical History Surgical History History of cholecystectomy History of gastric bypass Family History Family History Father Cerebrovascular accident, Onset Age: 96 Patient's father is Mother Family history of diabetes mellitus in first degree relative Family history of malignant neoplasm of breast in first degree relative, Onset Age: 88 Patient's mother is Social History Social History Smoking status: Current some day smoker Second hand tobacco smoke exposure: No Alcohol intake: never Exam Narrative: GENERAL: Chronically ill-appearing, thin, and in no acute distress. HEAD: Normocephalic, atraumatic. EYES: PERRL and EOMI. ENT: Mucous membranes moist. CHEST: Clear to auscultation. No respiratory distress. HEART: Tachycardic and regular. Normal peripheral pulses. ABDOMEN: Soft, nontender, nondistended. EXTREMITIES: Atrophy of the muscles of the arms and legs. Patient unable to stand due to chronic weakness. No lower extremity edema. SKIN: Warm, dry, no rash. Scattered bruising to the extremities worse on the legs. Upper extremities with multiple skin abrasions/ulcerations from either picking or falling. NEURO: Mild slurring of speech that is chronic. No facial droop. Alert and oriented x3. PSYCH: Normal mood and af
--- NOTE | 2022-02-24 00:18 | PC.NURSE ---
Pt daughter, Irene, voicing concerns about her mother. Pt was seen Tuesday for hypoglycemia and pt stated no provider went over results with pt or family. Family concerned for pt's welfare. From pt's understanding pt has bad UTI but has not been explained lab results, cat scans or any results.
[2022-02-24 00:47] LABS: Glucose Point of Care 102 mg/dl (65-105)
[2022-02-24 02:57] VITALS: BP 141/100; PULSE 102; RESP 21; O2SAT 95
--- NOTE | 2022-02-24 02:58 | PC.NURSE ---
per pt's family. Pt is unable to get up and safely walk at this time.
--- NOTE | 2022-02-24 02:58 | PC.NURSE ---
Pt was using bedside commode and this RN entered room pt was standing up but very unstable on feet. Pt was instructed to call for RN when standing up. This RN had to assist pt back to bed safely. Pt moaning in bed and states their back hurts.
[2022-02-24 03:29] LABS: Glucose Point of Care 86 mg/dl (65-105)
--- NOTE | 2022-02-24 04:00 | PC.NURSE ---
Pt had 3 unmeasured incontinent bowel movements. Pt stated they needed to use bedside commode. When this RN stood pt up to use bedside commode pt had large incontinent BM while standing up that splattered over floor.
--- NOTE | 2022-02-24 04:03 | PM.IMHP ---
H&P: HPI History of Present Illness Date/Time: 02/24/22 04:03 Chief Complaint: 56 years old female with past medical history of diabetes mellitus on insulin stroke presented to the hospital with weakness worsening gradually associated with multiple walks associated with difficulty with walking associated with skin bruises patient also was found to have blood sugar of 37 was given D10 with improvement in her blood sugar patient had multiple falls and generalized treated with difficulty with walking test pain going on for a while and worsening patient will be admitted to the hospital for evaluation and treatment of multiple fall generalized weakness hypoglycemia also UA was abnormal patient recently treated for UTI secondary to E coli sensitive to Rocephin Patient also has treated the source of diarrhea foul smelling in the ER denies any diarrhea at home Patient is poor historian Review of Systems Review of Systems: Twelve system review was done was negative except above PMFSH Past Medical History Medical History (Updated 02/24/22 @ 04:24 by Alhaji Flores MD) Anxiety CVA (cerebral vascular accident) Depression Diabetes mellitus Hyperlipidemia Hypertension Hypothyroidism Surgical History Surgical History History of cholecystectomy History of gastric bypass Family History Family History Father Cerebrovascular accident, Onset Age: 96 Patient's father is Mother Family history of diabetes mellitus in first degree relative Family history of malignant neoplasm of breast in first degree relative, Onset Age: 88 Patient's mother is Social History Social History Smoking status: Current some day smoker Second hand tobacco smoke exposure: No Alcohol intake: never Meds Home Medications and Allergies Home Medications Medication Instructions Recorded Confirmed Type metformin 1,000 mg tablet 1,000 mg PO BID 09/26/20 09/26/20 History oxycodone 15 mg tablet 15 mg PO Q6H PRN pain (scale score 01/20/21 Rx 7-10) #120 tabs alprazolam 2 mg tablet mg 02/20/22 History cyclobenzaprine 10 mg tablet mg 02/20/22 History dextroamphetamine-amphetamine 30 02/20/22 History mg tablet insulin degludec 100 unit/mL (3 unit subcut 02/20/22 History mL) subcutaneous pen (Tresiba FlexTouch U-100 insulin) lamotrigine 150 mg tablet mg 02/20/22 History levothyroxine 100 mcg tablet mcg 02/20/22 History nitrofurantoin 100 mg PO Q12H 3 days #6 caps 02/20/22 Rx monohydrate/macrocrystals 100 mg capsule (Macrobid) oxcarbazepine 150 mg tablet mg 02/20/22 History Allergies Allergy/AdvReac Type Severity Reaction Status Date / Time No Known Allergies Allergy Verified 02/23/22 22:42 Vital Signs Vital Signs - 24 hr 02/23/22 22:34 02/24/22 02:57 Temperature 97.5 F L Pulse Rate 108 H 102 H Respiratory Rate 23 H 21 H Blood Pressure 146/100 H 141/100 H Pulse Oximetry 97 95 Oxygen Delivery Room Air Exam Narrative: GENERAL: Well appearing, well-nourished, non-toxic, in no acute distress. HEAD: Normocephalic, atraumatic. NECK: Supple. No adenopathy, no masses. RESPIRATORY: Airway patent, respirations nonlabored. Clear to auscultation bilaterally, no rales, rhonchi, wheezing. CARDIOVASCULAR: Regular rate and rhythm without murmurs, rubs, or gallops. Peripheral pulses 2+ and equal bilaterally. ABDOMINAL: Soft, nontender, nondistended, no hepatosplenomegaly. Normoactive BS. MUSCULOSKELETAL: Moves all extremities. Strength/ROM intact without gross deformities or TTP. No edema. No calf tenderness. No chest wall tenderness palpation. SKIN: Positive bruises. NEURO: A&O X3. Moves all extremities cranial nerve normal PSYCHIATRIC: Appropriate mood and affect. Normal interaction.
[2022-02-24] MEDS: SODIUM CHLORIDE 0.9% IV 1,000 ML 100 ML IV CONT ×2 (04:53→15:21)
[2022-02-24 05:04] VITALS: BP 152/100; PULSE 110; RESP 29; O2SAT 95
[2022-02-24 06:08] LABS: Basophils Percent Auto 0.2 % (0.2-1.2); Eosinophils Percent Auto 0.3 % (0-4.4); Hematocrit 34.1 % (37.0-47.0); Hemoglobin 11.4 g/dL (12.0-15.0); Immature Granulocyte Absolute 0.03 K/mm3 (0.00-0.031); Immature Granulocyte Percent A 0.3 % (0-0.5); Lymphocytes Absolute Auto 1.18 K/mm3 (0.9-3.2); Lymphocytes Percent Auto 10.6 % (18.3-44.2); Mean Corpuscular HGB Conc 33.4 g/dl (32-36); Mean Corpuscular Hemoglobin 28.1 pg (26-34); Mean Platelet Volume 7.9 fl (7.4-10.4); Monocytes Absolute Auto 0.4 K/mm3 (0.1-0.6); Monocytes Percent Auto 3.5 % (2.6-8.5); Neutrophils Absolute Auto 9.4 K/mm3 (1.3-6.7); Neutrophils Percent Auto 85.1 % (45.5-73.1); Platelet Count Result 329 k/mm3 (150-375); Red Blood Count 4.06 M/mm3 (4.2-5.4); Red Cell Distribution Width 13.1 % (11.5-14.5); White Blood Count 11.1 K/mm3 (4.5-10.0)
[2022-02-24 06:21] LABS: Alanine Aminotransferase 36 U/L (6-35); Albumin Level 3.8 g/dL (3.5-5.1); Alkaline Phosphatase 115 U/L (38-126); Anion Gap 5 mmol/L (8-16); Aspartate Amino Transferase 39 U/L (14-36); Bilirubin,Total 0.4 mg/dL (0.2-1.3); Blood Urea Nitrogen 16 mg/dL (7-17); Calcium 8.7 mg/dL (8.4-10.2); Carbon Dioxide 29 mmol/L (22-30); Chloride 102 mmol/L (98-107); Creatine Kinase 187 U/L (30-135); Estimated CRCL calculation 70 ml/min; Estimated Glomerular Filt Rate > 60; Glucose 109 mg/dL (65-110); Potassium 3.6 mmol/L (3.4-5.0); Sodium 136 mmol/L (137-145)
[2022-02-24] MEDS: metroNIDAZOLE 250 MG TABLET 500 MG PO ×3 (06:24→21:08)
[2022-02-24 06:26] VITALS: BMI 17.9
[2022-02-24 06:34] VITALS: BP 157/83; PULSE 107; RESP 20; TEMP 36.8; O2SAT 100
[2022-02-24 07:56] LABS: Glucose Point of Care 66 mg/dl (65-105)
[2022-02-24] MEDS: HEPARIN SODIUM 5,000 UNITS/ML VIAL 5000 UNITS SUB-Q ×2 (08:09→21:09)
[2022-02-24] MEDS: GLUCOSE ORAL GEL 15 GM OF GLUCSE IN 37.5 GM TUBE PO (08:31)
[2022-02-24 08:58] LABS: Glucose Point of Care 123 mg/dl (65-105)
[2022-02-24 08:58] LABS: Glucose Point of Care 67 mg/dl (65-105)
[2022-02-24 09:05] LABS: Glucose Point of Care 126 mg/dl (65-105)
[2022-02-24 09:12] LABS: Free T4 Free Thyroxine Reflex 0.88 ng/dL (0.78-2.19)
[2022-02-24 10:20] LABS: Hemoglobin A1C 12.4 % (<5.7)
--- NOTE | 2022-02-24 10:49 | ADMGEN ---
This patient, Crystal Raines, was admitted to [facility] Surg Room 327-01. Patient/family oriented to hospital policies and general routines including ID bracelet, bed and alarms, visiting hours, pain management, procedures, bathroom and other care routines, personal items, smoking policy, room service/diet, and visiting hours. Information on how to activate the Rapid Response Team has been discussed. Patient/Family are encouraged to report perceived risks to care and to ask questions if they do not understand what they are told or what they should do. PT admitted overnight
[2022-02-24 11:10] LABS: Glucose Point of Care 141 mg/dl (65-105)
[2022-02-24 11:16] LABS: Total Triiodothyronine (T3) 0.73 NG/ML (0.97-1.69)
[2022-02-24] MEDS: OXcarbazepine 150 MG TABLET PO ×2 (11:25→21:08)
[2022-02-24] MEDS: lamoTRIgine 100 MG, lamoTRIgine 50 MG 150 MG PO ×2 (11:25→21:09)
[2022-02-24 11:57] VITALS: BMI 17.9
[2022-02-24 14:00] VITALS: BP 139/92; PULSE 104; RESP 18; TEMP 37.2; O2SAT 99
[2022-02-24 16:31] LABS: Glucose Point of Care 188 mg/dl (65-105)
--- NOTE | 2022-02-24 16:56 | PM.IMPN ---
Progress Note: A&P Assessment and Plan (1) Failure to thrive: Status: Acute Assessment and Plan: Etiology unclear. Patient has had decline in overall health with decreased p.o. intake, weight loss, difficulty with mobility, difficulty was speech. unclear of any underlying psychiatric factors playing a role. Plan to reach out to PCP during office hours for further information and to assess what workup has been completed so far. Per daughter report, Neurology evaluation has been negative. Patient will need dietitian evaluation, PT/ OT evals, and close monitoring. Most likely will require SNF given inability to complete ADLs. Implement fall precautions (2) Type 2 diabetes mellitus with hypoglycemia: Code(s): E11.649 - Type 2 diabetes mellitus with hypoglycemia without coma Status: Acute Assessment and Plan: Patient with episode of hypoglycemia prior to presentation with blood sugar 37. Patient took insulin but did not eat. Has had progressively decreased p.o. intake, putting her at high risk for hypoglycemia. In fact was evaluated in ED 2 days prior for hypoglycemia, blood sugar 49 at that time. Hold metformin. Hold long-acting insulin. Monitor Accu-Cheks, low-dose sliding scale insulin, and hypoglycemic protocol in place. A1c is 12.4. (3) Hypothyroidism: Code(s): E03.9 - Hypothyroidism, unspecified Status: Acute Assessment and Plan: TSH is elevated with T4 on the low end of normal. Seems likely that patient has not been taking levothyroxine consistently. At this time continue current dose 100 mcg daily. Will discuss with PCP for further recommendations regarding dosage adjustment. (4) Hypertension: Code(s): I10 - Essential (primary) hypertension Status: Acute Assessment and Plan: blood pressures have been slightly elevated. Seems improved today. Last BP 139/92. Patient does not appear to be in any p.o. antihypertensives. Monitor BP trends and adjust as needed. At this time, will begin hydralazine as needed for elevated BP. (5) UTI (urinary tract infection): Code(s): N39.0 - Urinary tract infection, site not specified Status: Acute Assessment and Plan: Patient evaluated in 2 days prior to admission, UA abnormal at that time. Patient discharged with course of Macrobid, unclear if she took this. Urine culture with growth of E coli susceptible to ceftriaxone. Continue ceftriaxone at this time. (6) Diarrhea: Code(s): R19.7 - Diarrhea, unspecified Status: Acute Assessment and Plan: Reported on admission, though no mention of diarrhea today. C diff PCR is negative. Obtain stool culture. Subjective Date/time seen: 02/24/22 16:56 Interval history: Date of service: 02/24/2022 Crystal Raines is a 56-year-old female with a history of CVA over 20 years ago, hypertension, hypothyroidism, hyperlipidemia, and type 2 diabetes mellitus, anxiety, depression who is seen in follow-up for hypoglycemia and failure to thrive. The patient herself is not able to provide any history. Her daughter is present in the room and states that the past several months, the patient's condition has declined with even more significant decline over the past 1 month. She states that the patient eats very little. She has lost a significant amount of weight and is very unsteady. Reports frequent falls. Reports decline in speech, stating patient's speech is now more slurred. States she has become incontinent. States she needs almost total assistance with daily activities at this point. The patient's is ordered typically provides this care to her. He also escorts the patient to appointments, daughter states she sees primary care, Neurology, and Pain Management. she states that the patient's will occasionally assist with medications, though it is very likely that patient has been missing her medications Rev
[2022-02-24 21:35] VITALS: BP 150/86; PULSE 98; RESP 20; TEMP 37.3; O2SAT 99
[2022-02-24 22:08] LABS: Glucose Point of Care 215 mg/dl (65-105)
[2022-02-24] MEDS: INSULIN ASPART (*BKC) 100 UNITS/ML SUB-Q (22:34)
--- NOTE | 2022-02-25 00:37 | PC.NURSE ---
Pt resting comfortable in bed. Pt still needs specimen samples done. Pt states she is very cold and extra blankets provided. Pt has no other complaints at this time. Will continue to monitor.
[2022-02-25] MEDS: SODIUM CHLORIDE 0.9% IV 1,000 ML 100 ML IV CONT ×2 (02:16→11:38)
[2022-02-25] MEDS: metroNIDAZOLE 250 MG TABLET 500 MG PO ×3 (05:33→21:12)
[2022-02-25] MEDS: LEVOTHYROXINE SODIUM 100 MCG TABLET PO (05:34)
[2022-02-25 06:00] VITALS: BP 137/84; PULSE 109; RESP 20; TEMP 36.6; O2SAT 99
[2022-02-25 06:31] LABS: Basophils Percent Auto 0.2 % (0.2-1.2); Eosinophils Absolute Auto 0.1 K/mm3 (0-0.3); Eosinophils Percent Auto 0.7 % (0-4.4); Hematocrit 30.6 % (37.0-47.0); Hemoglobin 10.3 g/dL (12.0-15.0); Immature Granulocyte Absolute 0.03 K/mm3 (0.00-0.031); Immature Granulocyte Percent A 0.3 % (0-0.5); Lymphocytes Absolute Auto 1.93 K/mm3 (0.9-3.2); Mean Corpuscular HGB Conc 33.7 g/dl (32-36); Mean Corpuscular Hemoglobin 28.6 pg (26-34); Monocytes Absolute Auto 0.4 K/mm3 (0.1-0.6); Monocytes Percent Auto 3.7 % (2.6-8.5); Neutrophils Absolute Auto 7.2 K/mm3 (1.3-6.7); Neutrophils Percent Auto 75.1 % (45.5-73.1); Platelet Count Result 273 k/mm3 (150-375); Red Cell Distribution Width 13.1 % (11.5-14.5); White Blood Count 9.6 K/mm3 (4.5-10.0)
[2022-02-25 06:52] LABS: Alanine Aminotransferase 31 U/L (6-35); Albumin Level 3.7 g/dL (3.5-5.1); Alkaline Phosphatase 106 U/L (38-126); Anion Gap 7 mmol/L (8-16); Aspartate Amino Transferase 30 U/L (14-36); Bilirubin,Total 0.5 mg/dL (0.2-1.3); Blood Urea Nitrogen 12 mg/dL (7-17); Calcium 8.4 mg/dL (8.4-10.2); Carbon Dioxide 24 mmol/L (22-30); Chloride 103 mmol/L (98-107); Estimated CRCL calculation 64 ml/min; Estimated Glomerular Filt Rate > 60; Glucose 139 mg/dL (65-110); Potassium 3.8 mmol/L (3.4-5.0); Sodium 134 mmol/L (137-145)
[2022-02-25 07:45] LABS: Glucose Point of Care 165 mg/dl (65-105)
[2022-02-25 10:00] VITALS: BP 146/90; PULSE 100; PULSE 104; RESP 14; TEMP 36.6; O2SAT 100
[2022-02-25] MEDS: HEPARIN SODIUM 5,000 UNITS/ML VIAL 5000 UNITS SUB-Q ×2 (10:08→21:02)
[2022-02-25] MEDS: lamoTRIgine 100 MG, lamoTRIgine 50 MG 150 MG PO ×2 (10:08→21:11)
[2022-02-25] MEDS: OXcarbazepine 150 MG TABLET PO ×2 (10:08→21:12)
--- NOTE | 2022-02-25 10:24 | PC.NURSE ---
I was notified at 0950 that the patient had fallen to the ground. When I went into the room, the patient was sitting on her bottom. She did not have any apparent injuries. She was picked up and moved to the bed and vital signs were taken. The patient stated she had an accident in her depends and was cleaned up. No injuries were noted on her backside. Her vital signs were stable. DELIO Au was called at 1015 and not further orders were given. The patient will be moved to room 323 to be closer to the nurses station.
[2022-02-25 10:44] LABS: Ammonia < 9 umol/L (9-30)
[2022-02-25 11:18] LABS: Hepatitis B Surface Antigen Negative (Negative)
[2022-02-25 11:24] LABS: HAV RESULT Negative (Negative); Hepatitis B Core IgM Result Negative (Negative)
[2022-02-25 11:28] LABS: Glucose Point of Care 381 mg/dl (65-105)
[2022-02-25] MEDS: INSULIN ASPART (*BKC) 100 UNITS/ML SUB-Q ×3 (11:33→16:54)
[2022-02-25 11:36] LABS: Hepatitis C Virus Antibody Negative (Negative)
[2022-02-25 12:02] LABS: Folic Acid 19.3 ng/mL (2.76->20)
[2022-02-25 12:22] LABS: Toxigenic C. Diff NEGATIVE (NEGATIVE)
--- NOTE | 2022-02-25 13:31 | WPDNEURCNPN ---
Assessment and Plan Assessment and plan (1) Weakness: Code(s): R53.1 - Weakness Status: Acute (2) Failure to thrive: Status: Acute (3) Type 2 diabetes mellitus with hypoglycemia: Code(s): E11.649 - Type 2 diabetes mellitus with hypoglycemia without coma Status: Acute (4) Hypothyroidism: Code(s): E03.9 - Hypothyroidism, unspecified Status: Acute (5) CVA (cerebral vascular accident): Code(s): I63.9 - Cerebral infarction, unspecified Status: Acute (6) Neuropathy: Code(s): G62.9 - Polyneuropathy, unspecified Status: Acute Plan Ms Raines is a 56 year old female with a history of prior stroke, poorly controlled diabetes, hypothyroidism, depression/anxiety presenting with generalized weakness, worsening speech, and weight loss. Mental status seems to fairly intact. Patient has absent lower extremity reflexes, which is unchanged from her neurology visit last year. She feels that the numbness in her lower extremities and hands is unchanged as well. Suspect that the generalized weakness is likely due to poor nutrition as well as poorly controlled hypothyroidism and progression of diabetic neuropathy. B12 levels were borderline -- a deficiency could also cause gait issues. She also had dysmetria on exam, so will need neuroimaging for further evaluation. - Check CK, methylmalonic acid, homocysteine, and thiamine level - Obtain MRI brain for dysmetria and complete spine w/wo contrast for gait dysfunction - Consider EMG/NCS as outpatient if no clear etiology of weakness/gait issues +/- LP to evaluate for CIDP Consult date: 02/25/22 Time Seen: 13:31 Reason for consult: Generalized weakness HPI: Crystal Raines is a 56 year old female with a history of prior stroke, HTN, hypothyroidism, HLD, and poorly controlled diabetes who presented yesterday due to progressive weakness. Patient was able to give some history, but not detailed. Per chart review, patient has had poor PO intake and weight loss of ther past few months. She has also been quite unsteady with walking and has frequent falls. Patient reports that her speech has been slurred since her stroke 20 years ago, although per chart review, her speech has declined as well. Associated symptoms include incontinence. She is requiring assitance with all ADLs. She was seeing Dr. Cancino for Neuropathy. Labs were significant for hypoglycemia initially (blood sugar 37). She received D10 bolus per EMS and was brought to [facility] for further evaluation. UDS positive for cannabinoids. Her TSH was 11.9, B12 263, and folate 19.3. Most recent A1c 12.4. Per Dr. Cancino's note, she had been losing weight around the time he saw her about a year ago. Review of Systems Constitutional: Constitutional: Reports fatigue, Reports lethargy and Reports weakness Eyes: Eyes: Reports no additional eye complaints ENT: Reports system reviewed and no additional complaints, except as documented Cardiovascular: Cardiovascular: Reports no additional cardiovascular complaints Respiratory: Respiratory: Reports no additional respiratory complaints Gastrointestinal: Gastrointestinal: Reports diarrhea Genitourinary: Genitourinary: Reports no additional female genitourinary complaints Musculoskeletal: Musculoskeletal: Reports no additional musculoskeletal complaints Integumentary/Breasts: Comments: skin lesions on upper extremities Neurologic: Reports as per HPI and Reports abnormal gait Psychiatric: Psychiatric: Reports anxiety and Reports depression PMFSH Past Medical History Medical History Anxiety CVA (cerebral vascular accident) Depression Diabetes mellitus Hyperlipidemia Hypertension Hypothyroidism Surgical History Surgical History History of cholecystectomy History of gastric bypass Family History Family History (Reviewed 02/25/22 @
[2022-02-25 13:32] LABS: HIV 1/2 Ab P24 Ag Result Negative (Negative)
--- NOTE | 2022-02-25 13:42 | PM.IMPN ---
Progress Note: A&P Assessment and Plan (1) Failure to thrive: Status: Acute Assessment and Plan: Etiology unclear. Per daughter, patient has had decline in overall health with decreased p.o. intake, weight loss, difficulty with mobility, frequent falls, difficulty with speech. Unclear if any underlying psychiatric factors playing a role. Pt denies drug use and tox screen negative with exception of cannabis. Spoke with PCP via phone today, reports weight loss has been a persistent issue but speech, decreased PO intake, and falls seems more acute. She has been evaluated with full body CT for possible cancer or other medical explanation for weight loss with negative results. Requests neurology evaluation. Consult to Dr. Wiggins, recommendations appreciated. Initial head CT negative for acute findings. HIV, RPR, hepatitis panel negative. Continue dietary supplements, appreciate breast buffer evaluation. Continue PT/OT. Fall precautions. Most likely will require SNF given inability to complete ADLs. (2) Depression: Code(s): F32.A - Depression, unspecified Status: Acute Assessment and Plan: Patient endorses depression. Severe depression could explain above symptoms. Left message with patient's psychiatrist, Dr. Acosta for further recommendations, awaiting return call. Patient is not on antidepressants, but is on several mood stabilizers including lamotrigine and Trileptal. (3) Type 2 diabetes mellitus with hypoglycemia: Code(s): E11.649 - Type 2 diabetes mellitus with hypoglycemia without coma Status: Acute Assessment and Plan: Patient with episode of hypoglycemia prior to presentation with blood sugar 37. Patient took insulin but did not eat. Has had progressively decreased p.o. intake, putting her at high risk for hypoglycemia. In fact was evaluated in ED 2 days prior for hypoglycemia, blood sugar 49 at that time. Blood sugars are difficult to control. A1c is 12.4. Continue Accu-Cheks, low-dose sliding scale insulin, and hypoglycemic protocol. Long acting insulin held due to hypoglycemia. Patient is eating better today and blood sugars are elevated this afternoon in 300s. Will resume Lantus at decreased dose, 10 units qHS and add 3 units Novolog with meals. Monitor glucose trends closely. (4) Hypothyroidism: Code(s): E03.9 - Hypothyroidism, unspecified Status: Acute Assessment and Plan: TSH is elevated with T4 on the low end of normal and low T3 Seems likely that patient has not been taking levothyroxine consistently. At this time continue current dose 100 mcg daily. Will discuss with PCP for further recommendations regarding dosage adjustment. (5) Hypertension: Code(s): I10 - Essential (primary) hypertension Status: Acute Assessment and Plan: Blood pressures stable, slightly elevated in the 140s systolic. Patient does not appear to be on any p.o. antihypertensives. Monitor BP trends and adjust as needed. Hydralazine as needed for elevated BP. (6) UTI (urinary tract infection): Code(s): N39.0 - Urinary tract infection, site not specified Status: Acute Assessment and Plan: Patient evaluated in ED 2 days prior to admission, UA abnormal at that time. Patient discharged with course of Macrobid, unclear if she took this. Urine culture with growth of E coli. Continue IV Ceftriaxone based on susceptibility results. (7) Diarrhea: Code(s): R19.7 - Diarrhea, unspecified Status: Acute Assessment and Plan: Reported on admission, though no mention of diarrhea today. C diff PCR is negative. Stool culture pending. Subjective Date/time seen: 02/25/22 13:42 Interval history: Date of service: 02/25/2022 Crystal Raines is a 56-year-old female with a history of CVA over 20 years ago, hypertension, hypothyroidism, hyperlipidemia, and type 2 diabetes mellitus, anxiety, depression who is seen
[2022-02-25 14:00] VITALS: BP 157/98; PULSE 99; RESP 16; TEMP 36.6; O2SAT 100
[2022-02-25 17:05] LABS: Glucose Point of Care 400 mg/dl (65-105)
[2022-02-25] MEDS: INSULIN GLARGINE (*BKC) 100 UNITS/ML 10 UNITS SUB-Q (21:02)
[2022-02-25] MEDS: MIRTAZAPINE 7.5 MG TABLET PO (21:12)
[2022-02-25 21:17] LABS: Glucose Point of Care 226 mg/dl (65-105)
[2022-02-25 22:00] VITALS: BP 160/90; PULSE 92; RESP 18; TEMP 36.2; O2SAT 99
[2022-02-26] MEDS: LEVOTHYROXINE SODIUM 100 MCG TABLET PO (05:47)
[2022-02-26] MEDS: metroNIDAZOLE 250 MG TABLET 500 MG PO ×3 (05:47→21:12)
[2022-02-26 06:00] VITALS: BP 153/98; PULSE 94; RESP 18; TEMP 36; O2SAT 100
[2022-02-26 06:44] LABS: Basophils Percent Auto 0.4 % (0.2-1.2); Eosinophils Absolute Auto 0.2 K/mm3 (0-0.3); Eosinophils Percent Auto 1.7 % (0-4.4); Hematocrit 31.8 % (37.0-47.0); Hemoglobin 10.6 g/dL (12.0-15.0); Immature Granulocyte Absolute 0.03 K/mm3 (0.00-0.031); Immature Granulocyte Percent A 0.3 % (0-0.5); Lymphocytes Absolute Auto 2.09 K/mm3 (0.9-3.2); Lymphocytes Percent Auto 22.4 % (18.3-44.2); Mean Corpuscular HGB Conc 33.3 g/dl (32-36); Mean Corpuscular Hemoglobin 28.7 pg (26-34); Mean Corpuscular Volume 86.2 fl (80-100); Mean Platelet Volume 8.2 fl (7.4-10.4); Monocytes Absolute Auto 0.4 K/mm3 (0.1-0.6); Monocytes Percent Auto 4.5 % (2.6-8.5); Neutrophils Absolute Auto 6.6 K/mm3 (1.3-6.7); Neutrophils Percent Auto 70.7 % (45.5-73.1); Platelet Count Result 299 k/mm3 (150-375); Red Blood Count 3.69 M/mm3 (4.2-5.4); Red Cell Distribution Width 13.1 % (11.5-14.5); White Blood Count 9.3 K/mm3 (4.5-10.0)
[2022-02-26 06:57] LABS: Alanine Aminotransferase 32 U/L (6-35); Albumin Level 3.8 g/dL (3.5-5.1); Alkaline Phosphatase 121 U/L (38-126); Anion Gap 9 mmol/L (8-16); Aspartate Amino Transferase 25 U/L (14-36); Bilirubin,Total 0.4 mg/dL (0.2-1.3); Blood Urea Nitrogen 13 mg/dL (7-17); Calcium 8.8 mg/dL (8.4-10.2); Carbon Dioxide 26 mmol/L (22-30); Chloride 100 mmol/L (98-107); Estimated CRCL calculation 76 ml/min; Estimated Glomerular Filt Rate > 60; Glucose 259 mg/dL (65-110); Potassium 3.4 mmol/L (3.4-5.0); Sodium 135 mmol/L (137-145)
[2022-02-26 08:13] LABS: Glucose Point of Care 280 mg/dl (65-105)
[2022-02-26] MEDS: SODIUM CHLORIDE 0.9% IV 1,000 ML 100 ML IV CONT (08:28)
[2022-02-26] MEDS: OXcarbazepine 150 MG TABLET PO ×2 (08:30→21:11)
[2022-02-26] MEDS: lamoTRIgine 100 MG, lamoTRIgine 50 MG 150 MG PO ×2 (08:30→21:11)
[2022-02-26] MEDS: SERTRALINE HCL 50 MG TABLET PO (08:30)
[2022-02-26] MEDS: INSULIN ASPART (*BKC) 100 UNITS/ML SUB-Q ×4 (08:31→17:06)
[2022-02-26] MEDS: HEPARIN SODIUM 5,000 UNITS/ML VIAL 5000 UNITS SUB-Q (08:31)
--- NOTE | 2022-02-26 09:30 | PM.IMPN ---
Progress Note: A&P Assessment and Plan (1) Failure to thrive: Status: Acute Assessment and Plan: Etiology unclear. Per daughter, patient has had decline in overall health with decreased p.o. intake, weight loss, difficulty with mobility, frequent falls, difficulty with speech. Unclear if any underlying psychiatric factors playing a role. Pt denies drug use and tox screen negative with exception of cannabis. Spoke with PCP via phone today, reports weight loss has been a persistent issue but speech, decreased PO intake, and falls seems more acute. She has been evaluated with full body CT for possible cancer or other medical explanation for weight loss with negative results. Requests neurology evaluation. Consult to Dr. Wiggins, recommendations appreciated. Initial head CT negative for acute findings. HIV, RPR, hepatitis panel negative. Continue dietary supplements, appreciate hotel guest service agent evaluation. Continue PT/OT. Fall precautions. Most likely will require SNF given inability to complete ADLs. (2) Depression: Code(s): F32.A - Depression, unspecified Status: Acute Assessment and Plan: Patient endorses depression. Severe depression could explain above symptoms. Left message with patient's psychiatrist, Dr. Acosta for further recommendations, awaiting return call. Patient is not on antidepressants, but is on several mood stabilizers including lamotrigine and Trileptal. (3) Type 2 diabetes mellitus with hypoglycemia: Code(s): E11.649 - Type 2 diabetes mellitus with hypoglycemia without coma Status: Acute Assessment and Plan: episode of hypoglycemia prior to presentation with blood sugar 37. Patient took insulin but did not eat. Has had progressively decreased p.o. intake, putting her at high risk for hypoglycemia. In fact was evaluated in ED 2 days prior for hypoglycemia, blood sugar 49 at that time. Blood sugars are difficult to control. A1c is 12.4. Continue Accu-Cheks, low-dose sliding scale insulin, and hypoglycemic protocol. Long acting insulin held due to hypoglycemia. Patient is eating better today and blood sugars are elevated this afternoon in 300s. Will resume Lantus at decreased dose, 10 units qHS and add 3 units Novolog with meals. Monitor glucose trends closely. Continue with current plan as her glucose appears to be stable at this time (4) Hypothyroidism: Code(s): E03.9 - Hypothyroidism, unspecified Status: Acute Assessment and Plan: TSH is elevated with T4 on the low end of normal and low T3 Seems likely that patient has not been taking levothyroxine consistently. At this time continue current dose 100 mcg daily. Will discuss with PCP for further recommendations regarding dosage adjustment. (5) Hypertension: Code(s): I10 - Essential (primary) hypertension Status: Acute Assessment and Plan: Current BP 153/98 Blood pressures stable, slightly elevated in the 140s systolic. Patient does not appear to be on any p.o. antihypertensives. Continue to trend BP Adjust therapy as indicated Hydralazine as needed for elevated BP. (6) UTI (urinary tract infection): Code(s): N39.0 - Urinary tract infection, site not specified Status: Acute Assessment and Plan: Patient evaluated in ED 2 days prior to admission, UA abnormal at that time. Patient discharged with course of Macrobid, unclear if she took this. Urine culture with growth of E coli. Continue IV Ceftriaxone based on susceptibility results. (7) Diarrhea: Code(s): R19.7 - Diarrhea, unspecified Status: Acute Assessment and Plan: Reported on admission, though no mention of diarrhea today. C diff PCR is negative. Stool culture pending. Plan Patient is going to be going to rehab, however, will need to await for insurance auth Time Spent With Moses
--- NOTE | 2022-02-26 09:30 | P.PNIM_ITS ---
Progress Note: A&P Assessment and Plan (1) Failure to thrive: Status: Acute Assessment and Plan: * Etiology unclear. * Per daughter, patient has had decline in overall health with decreased p.o. intake, weight loss, difficulty with mobility, frequent falls, difficulty with speech. * Unclear if any underlying psychiatric factors playing a role. Pt denies drug use and tox screen negative with exception of cannabis. * Spoke with PCP via phone today, reports weight loss has been a persistent issue but speech, decreased PO intake, and falls seems more acute. She has been evaluated with full body CT for possible cancer or other medical explanation for weight loss with negative results. Requests neurology evaluation. * Consult to Dr. Wiggins, recommendations appreciated. Initial head CT negative for acute findings. HIV, RPR, hepatitis panel negative. Continue dietary supplements, appreciate staple shear operator evaluation. Continue PT/OT. Fall precautions. Most likely will require SNF given inability to complete ADLs. (2) Depression: Code(s): F32.A - Depression, unspecified Status: Acute Assessment and Plan: * Patient endorses depression. * Severe depression could explain above symptoms. * Left message with patient's psychiatrist, Dr. Acosta for further recommendations, awaiting return call. * Patient is not on antidepressants, but is on several mood stabilizers including lamotrigine and Trileptal. (3) Type 2 diabetes mellitus with hypoglycemia: Code(s): E11.649 - Type 2 diabetes mellitus with hypoglycemia without coma Status: Acute Assessment and Plan: * episode of hypoglycemia prior to presentation with blood sugar 37. Patient took insulin but did not eat. Has had progressively decreased p.o. intake, putting her at high risk for hypoglycemia. In fact was evaluated in ED 2 days prior for hypoglycemia, blood sugar 49 at that time. * Blood sugars are difficult to control. A1c is 12.4. Continue Accu-Cheks, low- dose sliding scale insulin, and hypoglycemic protocol. Long acting insulin held due to hypoglycemia. Patient is eating better today and blood sugars are elevated this afternoon in 300s. Will resume Lantus at decreased dose, 10 units qHS and add 3 units Novolog with meals. Monitor glucose trends closely. * Continue with current plan as her glucose appears to be stable at this time (4) Hypothyroidism: Code(s): E03.9 - Hypothyroidism, unspecified Status: Acute Assessment and Plan: * TSH is elevated with T4 on the low end of normal and low T3 * Seems likely that patient has not been taking levothyroxine consistently. * At this time continue current dose 100 mcg daily. * Will discuss with PCP for further recommendations regarding dosage adjustment. (5) Hypertension: Code(s): I10 - Essential (primary) hypertension Status: Acute Assessment and Plan: * Current BP 153/98 * Blood pressures stable, slightly elevated in the 140s systolic. * Patient does not appear to be on any p.o. antihypertensives. * Continue to trend BP * Adjust therapy as indicated * Hydralazine as needed for elevated BP. (6) UTI (urinary tract infection): Code(s): N39.0 - Urinary tract infection, site not specified Status: Acute Assessment and Plan: * Patient evaluated in ED 2 days prior to admission, UA abnormal at that time. * Patient discharged with course of Macrobid, unclear if she took this.
[2022-02-26 10:56] VITALS: O2SAT 95
--- NOTE | 2022-02-26 11:06 | PCOTNOTE ---
Attempted to see patient this am, however patient sleeping upon entering. Pt was easily aroused, but too drowsy to participate at this time. Pt reported feeling very tired.
[2022-02-26 11:38] LABS: Glucose Point of Care 271 mg/dl (65-105)
[2022-02-26 12:41] LABS: Rapid Plasma Reagin Non-Reactive (NonReactive)
[2022-02-26 14:00] VITALS: BP 174/94; PULSE 93; RESP 16; TEMP 36.3; O2SAT 100
[2022-02-26 16:45] LABS: Glucose Point of Care 486 mg/dl (65-105)
[2022-02-26] MEDS: INSULIN ASPART (*BKC) 100 UNITS/ML 10 UNITS SUB-Q (17:05)
[2022-02-26 18:32] LABS: Glucose Point of Care 450 mg/dl (65-105)
[2022-02-26] MEDS: INSULIN ASPART (*BKC) 100 UNITS/ML 15 UNITS SUB-Q (18:50)
[2022-02-26] MEDS: SODIUM CHLORIDE 0.9% IV 250 ML 100 ML IV CONT (18:51)
[2022-02-26 20:45] LABS: Glucose Point of Care 83 mg/dl (65-105)
[2022-02-26] MEDS: MIRTAZAPINE 7.5 MG TABLET PO (21:11)
[2022-02-26 22:00] VITALS: BP 163/99; PULSE 107; RESP 19; TEMP 36.6; O2SAT 100
[2022-02-27] MEDS: GLUCOSE ORAL GEL 15 GM OF GLUCSE IN 37.5 GM TUBE PO (01:15)
[2022-02-27] MEDS: DEXTROSE 50% 25 GM/50 ML SYRINGE IV PUSH (01:36)
[2022-02-27 01:59] LABS: Glucose Point of Care 214 mg/dl (65-105)
[2022-02-27 01:59] LABS: Glucose Point of Care 69 mg/dl (65-105)
[2022-02-27 01:59] LABS: Glucose Point of Care 58 mg/dl (65-105)
[2022-02-27] MEDS: LEVOTHYROXINE SODIUM 100 MCG TABLET PO (06:43)
[2022-02-27] MEDS: metroNIDAZOLE 250 MG TABLET 500 MG PO ×3 (06:43→21:08)
[2022-02-27 07:36] LABS: Glucose Point of Care 241 mg/dl (65-105)
[2022-02-27] MEDS: INSULIN ASPART (*BKC) 100 UNITS/ML SUB-Q ×6 (07:55→16:30)
[2022-02-27] MEDS: OXcarbazepine 150 MG TABLET PO ×2 (07:59→21:08)
[2022-02-27] MEDS: SERTRALINE HCL 50 MG TABLET PO (08:00)
[2022-02-27] MEDS: lamoTRIgine 100 MG, lamoTRIgine 50 MG 150 MG PO ×2 (08:00→21:08)
[2022-02-27] MEDS: HEPARIN SODIUM 5,000 UNITS/ML VIAL 5000 UNITS SUB-Q (08:07)
[2022-02-27 09:37] LABS: Basophils Percent Auto 0.4 % (0.2-1.2); Eosinophils Absolute Auto 0.1 K/mm3 (0-0.3); Eosinophils Percent Auto 1.8 % (0-4.4); Hematocrit 35.5 % (37.0-47.0); Hemoglobin 11.7 g/dL (12.0-15.0); Immature Granulocyte Absolute 0.02 K/mm3 (0.00-0.031); Immature Granulocyte Percent A 0.3 % (0-0.5); Lymphocytes Absolute Auto 1.64 K/mm3 (0.9-3.2); Lymphocytes Percent Auto 20.6 % (18.3-44.2); Mean Corpuscular Hemoglobin 27.9 pg (26-34); Mean Corpuscular Volume 84.7 fl (80-100); Mean Platelet Volume 8.1 fl (7.4-10.4); Monocytes Absolute Auto 0.3 K/mm3 (0.1-0.6); Neutrophils Absolute Auto 5.8 K/mm3 (1.3-6.7); Neutrophils Percent Auto 72.9 % (45.5-73.1); Platelet Count Result 360 k/mm3 (150-375); Red Blood Count 4.19 M/mm3 (4.2-5.4)
[2022-02-27 09:55] LABS: Alanine Aminotransferase 34 U/L (6-35); Albumin Level 4.2 g/dL (3.5-5.1); Alkaline Phosphatase 130 U/L (38-126); Anion Gap 13 mmol/L (8-16); Aspartate Amino Transferase 30 U/L (14-36); Bilirubin,Total 0.4 mg/dL (0.2-1.3); Blood Urea Nitrogen 15 mg/dL (7-17); Calcium 9.2 mg/dL (8.4-10.2); Carbon Dioxide 26 mmol/L (22-30); Chloride 96 mmol/L (98-107); Estimated CRCL calculation 64 ml/min; Estimated Glomerular Filt Rate > 60; Glucose 378 mg/dL (65-110); Magnesium 1.6 mg/dL (1.6-2.3); Potassium 3.7 mmol/L (3.4-5.0); Sodium 135 mmol/L (137-145)
--- NOTE | 2022-02-27 11:48 | WPDNEUROPN ---
Progress Note: A&P Assessment and Plan (1) Weakness: Code(s): R53.1 - Weakness Status: Acute (2) Failure to thrive: Status: Acute (3) Hypothyroidism: Code(s): E03.9 - Hypothyroidism, unspecified Status: Acute (4) Diabetes mellitus: Code(s): E11.9 - Type 2 diabetes mellitus without complications Status: Acute Plan Ms Raines is a 56 year old female with a history of prior stroke, poorly controlled diabetes, hypothyroidism, depression/anxiety presenting with generalized weakness, worsening speech, and weight loss. Mental status seems to fairly intact. Patient has absent lower extremity reflexes, which is unchanged from her neurology visit last year. She feels that the numbness in her lower extremities and hands is unchanged as well. Suspect that the generalized weakness is likely due to poor nutrition as well as poorly controlled hypothyroidism and progression of diabetic neuropathy. B12 levels were borderline -- a deficiency could also cause gait issues. Cervical spine MRI showed disc bulging with myelomalacia at C5-C6. - Consult Neurosurgery for cervical spine findings - Pending methylmalonic acid, homocysteine, and thiamine level - Consider EMG/NCS as outpatient if no clear etiology/improvement of weakness/gait issues +/- LP to evaluate for CIDP Subjective Date/time seen: 02/27/22 11:48 Interval history: Crystal Raines is a 56 year old female with a history of prior stroke, HTN, hypothyroidism, HLD, and poorly controlled diabetes who presented yesterday due to progressive weakness. Patient was able to give some history, but not detailed. Per chart review, patient has had poor PO intake and weight loss of ther past few months. She has also been quite unsteady with walking and has frequent falls. Patient reports that her speech has been slurred since her stroke 20 years ago, although per chart review, her speech has declined as well. Associated symptoms include incontinence. She is requiring assitance with all ADLs. She was seeing Dr. Cancino for Neuropathy. Labs were significant for hypoglycemia initially (blood sugar 37). She received D10 bolus per EMS and was brought to [place] [facility] for further evaluation. UDS positive for cannabinoids. Her TSH was 11.9, B12 263, and folate 19.3. Most recent A1c 12.4. Homocysteine, methylmalonic acid, and thiamine levels are pending. MRI of spine w/o contrast- mild spondylosis in thoracic and lumbar spine. Cervical spine MRI showed disc bulging with myelomalacia at C5-C6. Patient reports feeling better today with some improvement in her strength. She was able to use walker and walk around with physical therapy. No new concerns. Review of Systems Constitutional: Constitutional: Reports lethargy and Reports weakness Eyes: Eyes: Reports no additional eye complaints ENT: Reports system reviewed and no additional complaints, except as documented Cardiovascular: Cardiovascular: Reports no additional cardiovascular complaints Respiratory: Respiratory: Reports no additional respiratory complaints Gastrointestinal: Gastrointestinal: Reports no additional gastrointestinal complaints Genitourinary: Genitourinary: Reports no additional female genitourinary complaints Musculoskeletal: Musculoskeletal: Reports no additional musculoskeletal complaints Integumentary/Breasts: Skin/Breast: Reports system reviewed and no additional complaints, except as docu Neurologic: Reports system reviewed and no additional complaints, except as documented and Reports abnormal gait Psychiatric: Psychiatric: Reports depression Exam Const: General: comfortable and no acute distress HENMT: Mouth: Yes moist mucous membranes Eyes: Pupils: Equal, round and reactive pupils present EOM: EOMs intact bilaterally Resp: Effort & Inspection: normal respiratory effort Auscultation: clear to auscultation bilaterally Cardio: Rate: regular rate Rhythm: regular rhythm GI: GI Palp: Yes Soft
[2022-02-27 11:49] LABS: Glucose Point of Care 319 mg/dl (65-105)
[2022-02-27] MEDS: MAGNESIUM SULF 4 GM/WATER100ML 4 GM/100 ML BAG IVPB (11:54)
[2022-02-27 13:41] VITALS: BP 120/86; PULSE 110; RESP 20; TEMP 36.7; O2SAT 100
--- NOTE | 2022-02-27 13:45 | P.PNIM_ITS ---
Progress Note: A&P Assessment and Plan (1) Failure to thrive: Status: Acute Assessment and Plan: * Etiology unclear. * Per daughter, patient has had decline in overall health with decreased p.o. intake, weight loss, difficulty with mobility, frequent falls, difficulty with speech. * Unclear if any underlying psychiatric factors playing a role. Pt denies drug use and tox screen negative with exception of cannabis. * Spoke with PCP via phone today, reports weight loss has been a persistent issue but speech, decreased PO intake, and falls seems more acute. She has been evaluated with full body CT for possible cancer or other medical explanation for weight loss with negative results. Requests neurology evaluation. * Consult to Dr. Wiggins, recommendations appreciated. Initial head CT negative for acute findings. HIV, RPR, hepatitis panel negative. Continue dietary supplements, appreciate radio artist evaluation. Continue PT/OT. Fall precautions. Most likely will require SNF given inability to complete ADLs. (2) Depression: Code(s): F32.A - Depression, unspecified Status: Acute Assessment and Plan: * Patient endorses depression. * Severe depression could explain above symptoms. * Dr. Acosta did give further recommendations and new medications has been started * for psychiatry patient has been started on Remeron 7.5 at night, Zoloft 50 mg in the morning * Patient is not on antidepressants, but is on several mood stabilizers including lamotrigine and Trileptal. (3) Type 2 diabetes mellitus with hypoglycemia: Code(s): E11.649 - Type 2 diabetes mellitus with hypoglycemia without coma Status: Acute Assessment and Plan: * episode of hypoglycemia prior to presentation with blood sugar 37. Patient took insulin but did not eat. Has had progressively decreased p.o. intake, putting her at high risk for hypoglycemia. In fact was evaluated in ED 2 days prior for hypoglycemia, blood sugar 49 at that time. * Blood sugars are difficult to control. A1c is 12.4. Continue Accu-Cheks, low- dose sliding scale insulin, and hypoglycemic protocol. Long acting insulin held due to hypoglycemia. * Patient is eating better today * blood sugars are noted to be elevated. * Lantus at increased dose, 23 units qHS * increase to 5 units Novolog with meals. * increase sliding scale to high dose with stricter parameters * Monitor glucose trends closely. * hypoglycemia protocol * Continue with current plan as her glucose appears to be stable at this time (4) Hypothyroidism: Code(s): E03.9 - Hypothyroidism, unspecified Status: Acute Assessment and Plan: * TSH is elevated with T4 on the low end of normal and low T3 * Seems likely that patient has not been taking levothyroxine consistently. * At this time continue current dose 100 mcg daily. * Will discuss with PCP for further recommendations regarding dosage adjustment. (5) Hypertension: Code(s): I10 - Essential (primary) hypertension Status: Acute Assessment and Plan: * Current BP 120/86 * Blood pressures stable, slightly elevated in the 140s systolic. * Patient does not appear to be on any p.o. antihypertensives. * Continue to trend BP * Adjust therapy as indicated * Hydralazine as needed for elevated BP. (6) UTI (urinary tract infection): Code(s): N39.0 - Urinary tract infection, site not specified Status: Acute
--- NOTE | 2022-02-27 13:45 | PM.IMPN ---
Progress Note: A&P Assessment and Plan (1) Failure to thrive: Status: Acute Assessment and Plan: Etiology unclear. Per daughter, patient has had decline in overall health with decreased p.o. intake, weight loss, difficulty with mobility, frequent falls, difficulty with speech. Unclear if any underlying psychiatric factors playing a role. Pt denies drug use and tox screen negative with exception of cannabis. Spoke with PCP via phone today, reports weight loss has been a persistent issue but speech, decreased PO intake, and falls seems more acute. She has been evaluated with full body CT for possible cancer or other medical explanation for weight loss with negative results. Requests neurology evaluation. Consult to Dr. Wiggins, recommendations appreciated. Initial head CT negative for acute findings. HIV, RPR, hepatitis panel negative. Continue dietary supplements, appreciate forming press operator evaluation. Continue PT/OT. Fall precautions. Most likely will require SNF given inability to complete ADLs. (2) Depression: Code(s): F32.A - Depression, unspecified Status: Acute Assessment and Plan: Patient endorses depression. Severe depression could explain above symptoms. Dr. Acosta did give further recommendations and new medications has been started for psychiatry patient has been started on Remeron 7.5 at night, Zoloft 50 mg in the morning Patient is not on antidepressants, but is on several mood stabilizers including lamotrigine and Trileptal. (3) Type 2 diabetes mellitus with hypoglycemia: Code(s): E11.649 - Type 2 diabetes mellitus with hypoglycemia without coma Status: Acute Assessment and Plan: episode of hypoglycemia prior to presentation with blood sugar 37. Patient took insulin but did not eat. Has had progressively decreased p.o. intake, putting her at high risk for hypoglycemia. In fact was evaluated in ED 2 days prior for hypoglycemia, blood sugar 49 at that time. Blood sugars are difficult to control. A1c is 12.4. Continue Accu-Cheks, low-dose sliding scale insulin, and hypoglycemic protocol. Long acting insulin held due to hypoglycemia. Patient is eating better today blood sugars are noted to be elevated. Lantus at increased dose, 23 units qHS increase to 5 units Novolog with meals. increase sliding scale to high dose with stricter parameters Monitor glucose trends closely. hypoglycemia protocol Continue with current plan as her glucose appears to be stable at this time (4) Hypothyroidism: Code(s): E03.9 - Hypothyroidism, unspecified Status: Acute Assessment and Plan: TSH is elevated with T4 on the low end of normal and low T3 Seems likely that patient has not been taking levothyroxine consistently. At this time continue current dose 100 mcg daily. Will discuss with PCP for further recommendations regarding dosage adjustment. (5) Hypertension: Code(s): I10 - Essential (primary) hypertension Status: Acute Assessment and Plan: Current BP 120/86 Blood pressures stable, slightly elevated in the 140s systolic. Patient does not appear to be on any p.o. antihypertensives. Continue to trend BP Adjust therapy as indicated Hydralazine as needed for elevated BP. (6) UTI (urinary tract infection): Code(s): N39.0 - Urinary tract infection, site not specified Status: Acute Assessment and Plan: Patient evaluated in ED 2 days prior to admission, UA abnormal at that time. Patient discharged with course of Macrobid, unclear if she took this. Urine culture with growth of E coli. Continue IV Ceftriaxone based on susceptibility results. (7) Diarrhea: Code(s): R19.7 - Diarrhea, unspecified Status: Acute Assessment and Plan: Reported on admission, though no mention of diarrhea today. C diff PCR is
[2022-02-27] MEDS: HYDROcodone/acetaminophen (*CRX) 5-325 MG TABLET 1 TAB PO (15:31)
[2022-02-27 16:14] LABS: Glucose Point of Care 434 mg/dl (65-105)
[2022-02-27 17:33] LABS: Glucose Point of Care 333 mg/dl (65-105)
[2022-02-27] MEDS: INSULIN ASPART (*BKC) 100 UNITS/ML 10 UNITS SUB-Q (17:45)
[2022-02-27 18:47] LABS: Glucose Point of Care 350 mg/dl (65-105)
[2022-02-27] MEDS: SODIUM CHLORIDE 0.9% IV 250 ML 999 ML IV CONT (19:18)
[2022-02-27 20:40] LABS: Glucose Point of Care 231 mg/dl (65-105)
[2022-02-27] MEDS: MIRTAZAPINE 7.5 MG TABLET PO (21:08)
[2022-02-27] MEDS: INSULIN GLARGINE (*BKC) 100 UNITS/ML 23 UNITS SUB-Q (21:08)
[2022-02-27 21:26] VITALS: BP 155/99; PULSE 101; RESP 24; TEMP 36.7; O2SAT 100
[2022-02-27] MEDS: oxyCODONE/ACETAMINOPHEN (*CRX) 5-325 MG TABLET 1.5 TABLET PO (22:18)
[2022-02-27] MEDS: ALPRAZolam (*CRX) 0.5 MG TABLET 1 MG PO (23:08)
[2022-02-28] MEDS: HYDROcodone/acetaminophen (*CRX) 5-325 MG TABLET 1 TAB PO ×3 (03:35→18:50)
[2022-02-28 05:21] VITALS: BP 185/89; PULSE 82; RESP 20; TEMP 36.3; O2SAT 99
[2022-02-28] MEDS: hydrALAZINE HCL 20 MG/ML VIAL 10 MG IV PUSH (05:26)
[2022-02-28] MEDS: LEVOTHYROXINE SODIUM 100 MCG TABLET PO (06:04)
[2022-02-28] MEDS: metroNIDAZOLE 250 MG TABLET 500 MG PO ×3 (06:04→20:55)
[2022-02-28 07:36] LABS: Glucose Point of Care 271 mg/dl (65-105)
--- NOTE | 2022-02-28 07:45 | P.PNIM_ITS ---
Progress Note: A&P Assessment and Plan (1) Failure to thrive: Status: Acute Assessment and Plan: * Etiology unclear. * Per daughter, patient has had decline in overall health with decreased p.o. intake, weight loss, difficulty with mobility, frequent falls, difficulty with speech. * Unclear if any underlying psychiatric factors playing a role. Pt denies drug use and tox screen negative with exception of cannabis. * Spoke with PCP via phone today, reports weight loss has been a persistent issue but speech, decreased PO intake, and falls seems more acute. She has been evaluated with full body CT for possible cancer or other medical explanation for weight loss with negative results. * neurology consulted * Initial head CT negative for acute findings. * HIV, RPR, hepatitis panel negative. * Continue dietary supplements, appreciate residential sales manager evaluation. * Continue PT/OT. Fall precautions. * Awaiting SNF auth at this time (2) Depression: Code(s): F32.A - Depression, unspecified Status: Acute Assessment and Plan: * Seems to be more stable at this time * Severe depression could explain above symptoms. * Dr. Acosta did give further recommendations and new medications has been started * Per psychiatry patient has been started on Remeron 7.5 at night, Zoloft 50 mg in the morning * Continued lamotrigine and Trileptal. (3) Type 2 diabetes mellitus with hypoglycemia: Code(s): E11.649 - Type 2 diabetes mellitus with hypoglycemia without coma Status: Acute Assessment and Plan: * episode of hypoglycemia prior to presentation with blood sugar 37. Patient took insulin but did not eat. Has had progressively decreased p.o. intake, putting her at high risk for hypoglycemia. In fact was evaluated in ED 2 days prior for hypoglycemia, blood sugar 49 at that time. * A1c is 12.4. * Continue Accu-Cheks * Patient is eating better and noted not following a diabetic diet * blood sugars remain elevated especiallin in the evening * Lantus adjusted to 15 units Q12H * increased to 7 units Novolog with meals. * Increase sliding scale to high dose with stricter parameters * Monitor glucose trends closely. * hypoglycemia protocol (4) Hypothyroidism: Code(s): E03.9 - Hypothyroidism, unspecified Status: Acute Assessment and Plan: * TSH is elevated with T4 on the low end of normal and low T3 * Seems likely that patient has not been taking levothyroxine consistently. * At this time continue current dose 100 mcg daily. * Will discuss with PCP for further recommendations regarding dosage adjustment. (5) Hypertension: Code(s): I10 - Essential (primary) hypertension Status: Acute Assessment and Plan: * Current BP 185/89 * 24 trend appears to be showing BP 140-180 systolic * Started lisinopril 5mg PO daily * Continue to trend BP * Adjust therapy as indicated * Hydralazine as needed for elevated BP. (6) UTI (urinary tract infection): Code(s): N39.0 - Urinary tract infection, site not specified Status: Acute Assessment and Plan: * Patient evaluated in ED 2 days prior to admission, UA abnormal at that time. * Patient discharged with course of Macrobid, unclear if she took this. * Urine culture with growth of E coli. * Received 5 days of ceftriaxone * Antibiotics stopped at this time.
[2022-02-28 07:49] LABS: Basophils Absolute Auto 0.1 K/mm3 (0.0-0.1); Basophils Percent Auto 0.6 % (0.2-1.2); Eosinophils Absolute Auto 0.2 K/mm3 (0-0.3); Eosinophils Percent Auto 2.3 % (0-4.4); Hematocrit 33.1 % (37.0-47.0); Immature Granulocyte Absolute 0.03 K/mm3 (0.00-0.031); Immature Granulocyte Percent A 0.4 % (0-0.5); Lymphocytes Absolute Auto 2.44 K/mm3 (0.9-3.2); Mean Corpuscular HGB Conc 33.2 g/dl (32-36); Mean Corpuscular Hemoglobin 29.1 pg (26-34); Mean Corpuscular Volume 87.6 fl (80-100); Mean Platelet Volume 8.1 fl (7.4-10.4); Monocytes Absolute Auto 0.4 K/mm3 (0.1-0.6); Neutrophils Absolute Auto 4.8 K/mm3 (1.3-6.7); Neutrophils Percent Auto 60.7 % (45.5-73.1); Platelet Count Result 357 k/mm3 (150-375); Red Blood Count 3.78 M/mm3 (4.2-5.4); Red Cell Distribution Width 13.2 % (11.5-14.5); White Blood Count 7.9 K/mm3 (4.5-10.0)
[2022-02-28] MEDS: INSULIN GLARGINE (*BKC) 100 UNITS/ML 15 UNITS SUB-Q ×2 (07:52→20:53)
[2022-02-28] MEDS: INSULIN ASPART (*BKC) 100 UNITS/ML SUB-Q ×2 (07:52→11:33)
[2022-02-28] MEDS: INSULIN ASPART (*BKC) 100 UNITS/ML 7 UNITS SUB-Q ×3 (07:53→16:52)
[2022-02-28] MEDS: OXcarbazepine 150 MG TABLET PO ×2 (07:55→20:55)
[2022-02-28] MEDS: lamoTRIgine 100 MG, lamoTRIgine 50 MG 150 MG PO ×2 (07:55→20:55)
[2022-02-28] MEDS: HEPARIN SODIUM 5,000 UNITS/ML VIAL 5000 UNITS SUB-Q ×2 (07:55→20:55)
[2022-02-28] MEDS: SERTRALINE HCL 50 MG TABLET PO (07:56)
[2022-02-28] MEDS: lisinopriL 5 MG TABLET PO (07:57)
[2022-02-28 08:00] VITALS: BP 142/89
[2022-02-28 08:02] LABS: Alanine Aminotransferase 33 U/L (6-35); Alkaline Phosphatase 131 U/L (38-126); Anion Gap 10 mmol/L (8-16); Aspartate Amino Transferase 24 U/L (14-36); Bilirubin,Total 0.3 mg/dL (0.2-1.3); Blood Urea Nitrogen 18 mg/dL (7-17); Calcium 8.9 mg/dL (8.4-10.2); Carbon Dioxide 27 mmol/L (22-30); Chloride 97 mmol/L (98-107); Estimated CRCL calculation 64 ml/min; Estimated Glomerular Filt Rate > 60; Glucose 281 mg/dL (65-110); Magnesium 1.8 mg/dL (1.6-2.3); Potassium 3.7 mmol/L (3.4-5.0); Sodium 134 mmol/L (137-145)
[2022-02-28] MEDS: SACCHAROMYCES BOULARDII 250 MG CAPSULE PO ×3 (09:52→16:52)
[2022-02-28 11:22] LABS: Glucose Point of Care 246 mg/dl (65-105)
[2022-02-28] MEDS: ALPRAZolam (*CRX) 0.5 MG TABLET 1 MG PO (12:44)
[2022-02-28 13:23] VITALS: BP 115/70; PULSE 110; RESP 18; TEMP 35.9; O2SAT 100
[2022-02-28 16:03] LABS: Glucose Point of Care 119 mg/dl (65-105)
[2022-02-28] MEDS: MIRTAZAPINE 7.5 MG TABLET PO (20:55)
[2022-02-28 21:14] LABS: Glucose Point of Care 231 mg/dl (65-105)
[2022-02-28 21:44] VITALS: BP 101/59; PULSE 102; RESP 20; TEMP 36.8; O2SAT 97
[2022-03-01] MEDS: HYDROcodone/acetaminophen (*CRX) 5-325 MG TABLET 1 TAB PO (04:38)
[2022-03-01 06:00] VITALS: BP 138/88; PULSE 103; RESP 20; TEMP 36.4; O2SAT 100
[2022-03-01] MEDS: metroNIDAZOLE 250 MG TABLET 500 MG PO ×3 (06:27→22:04)
[2022-03-01] MEDS: LEVOTHYROXINE SODIUM 100 MCG TABLET PO (06:27)
[2022-03-01 06:42] LABS: Hematocrit 35.2 % (37.0-47.0); Hemoglobin 11.2 g/dL (12.0-15.0); Mean Corpuscular HGB Conc 31.8 g/dl (32-36); Mean Corpuscular Hemoglobin 28.6 pg (26-34); Mean Platelet Volume 8.2 fl (7.4-10.4); Platelet Count Result 360 k/mm3 (150-375); Red Blood Count 3.91 M/mm3 (4.2-5.4); Red Cell Distribution Width 13.2 % (11.5-14.5); White Blood Count 8.4 K/mm3 (4.5-10.0)
[2022-03-01 06:47] LABS: Alanine Aminotransferase 27 U/L (6-35); Albumin Level 3.7 g/dL (3.5-5.1); Alkaline Phosphatase 97 U/L (38-126); Anion Gap 10 mmol/L (8-16); Aspartate Amino Transferase 26 U/L (14-36); Bilirubin,Total 0.2 mg/dL (0.2-1.3); Blood Urea Nitrogen 24 mg/dL (7-17); Calcium 9.1 mg/dL (8.4-10.2); Carbon Dioxide 30 mmol/L (22-30); Chloride 99 mmol/L (98-107); Estimated CRCL calculation 56 ml/min; Estimated Glomerular Filt Rate > 60; Glucose 151 mg/dL (65-110); Magnesium 2.2 mg/dL (1.6-2.3); Sodium 139 mmol/L (137-145)
[2022-03-01 07:37] LABS: Glucose Point of Care 168 mg/dl (65-105)
[2022-03-01] MEDS: HEPARIN SODIUM 5,000 UNITS/ML VIAL 5000 UNITS SUB-Q ×2 (08:50→22:04)
[2022-03-01] MEDS: SERTRALINE HCL 50 MG TABLET PO (08:50)
[2022-03-01] MEDS: lisinopriL 5 MG TABLET PO (08:51)
[2022-03-01] MEDS: OXcarbazepine 150 MG TABLET PO ×2 (08:51→22:05)
[2022-03-01] MEDS: lamoTRIgine 100 MG, lamoTRIgine 50 MG 150 MG PO ×2 (08:51→22:20)
[2022-03-01] MEDS: SACCHAROMYCES BOULARDII 250 MG CAPSULE PO ×3 (08:51→17:34)
[2022-03-01] MEDS: INSULIN GLARGINE (*BKC) 100 UNITS/ML 15 UNITS SUB-Q ×2 (08:54→22:04)
[2022-03-01] MEDS: INSULIN ASPART (*BKC) 100 UNITS/ML 7 UNITS SUB-Q ×3 (08:55→17:34)
--- NOTE | 2022-03-01 09:10 | PCPTNOTE ---
Patient refused treatment this session due to back pain at 01/23. RN aware.
--- NOTE | 2022-03-01 09:30 | PM.IMPN ---
Progress Note: A&P Assessment and Plan (1) Failure to thrive: Status: Acute Assessment and Plan: Etiology unclear. Per daughter, patient has had decline in overall health with decreased p.o. intake, weight loss, difficulty with mobility, frequent falls, difficulty with speech. Unclear if any underlying psychiatric factors playing a role. Pt denies drug use and tox screen negative with exception of cannabis. Spoke with PCP via phone today, reports weight loss has been a persistent issue but speech, decreased PO intake, and falls seems more acute. She has been evaluated with full body CT for possible cancer or other medical explanation for weight loss with negative results. neurology consulted Initial head CT negative for acute findings. HIV, RPR, hepatitis panel negative. Continue dietary supplements, appreciate sales recruitment specialist evaluation. Continue PT/OT. Fall precautions. Awaiting SNF auth at this time (2) Depression: Code(s): F32.A - Depression, unspecified Status: Acute Assessment and Plan: Seems to be more stable at this time Severe depression could explain above symptoms. Dr. Acosta did give further recommendations and new medications has been started Per psychiatry patient has been started on Remeron 7.5 at night, Zoloft 50 mg in the morning Continued lamotrigine and Trileptal. (3) Type 2 diabetes mellitus with hypoglycemia: Code(s): E11.649 - Type 2 diabetes mellitus with hypoglycemia without coma Status: Acute Assessment and Plan: episode of hypoglycemia prior to presentation with blood sugar 37. Patient took insulin but did not eat. Has had progressively decreased p.o. intake, putting her at high risk for hypoglycemia. In fact was evaluated in ED 2 days prior for hypoglycemia, blood sugar 49 at that time. A1c is 12.4. Continue Accu-Cheks Patient is eating better and noted not following a diabetic diet blood sugars remain elevated especiallin in the evening Lantus adjusted to 15 units Q12H increased to 7 units Novolog with meals. Increase sliding scale to high dose with stricter parameters Monitor glucose trends closely. hypoglycemia protocol (4) Hypothyroidism: Code(s): E03.9 - Hypothyroidism, unspecified Status: Acute Assessment and Plan: TSH is elevated with T4 on the low end of normal and low T3 Seems likely that patient has not been taking levothyroxine consistently. At this time continue current dose 100 mcg daily. Will discuss with PCP for further recommendations regarding dosage adjustment. (5) Hypertension: Code(s): I10 - Essential (primary) hypertension Status: Acute Assessment and Plan: Current BP 113/80 24 trend appears to be showing BP 140-180 systolic Started lisinopril 5mg PO daily Continue to trend BP Adjust therapy as indicated Hydralazine as needed for elevated BP. (6) UTI (urinary tract infection): Code(s): N39.0 - Urinary tract infection, site not specified Status: Acute Assessment and Plan: Patient evaluated in ED 2 days prior to admission, UA abnormal at that time. Patient discharged with course of Macrobid, unclear if she took this. Urine culture with growth of E coli. Received 5 days of ceftriaxone Antibiotics stopped at this time. (7) Diarrhea: Code(s): R19.7 - Diarrhea, unspecified Status: Acute Assessment and Plan: Reports persistent diarrhea Could be related to current eating habits Start banatrol and probiotic C diff PCR is negative. Stool culture negative (8) Weakness: Code(s): R53.1 - Weakness Status: Acute Assessment and Plan: MRI of the cervical spine showed bulging with myelomalacia at C5-C6 MRI of lumbar showed spondylolysis MRI of the thoracic showed mild thoracic spondylolysis
--- NOTE | 2022-03-01 10:03 | PCOTNOTE ---
Attempted to see patient this am, however patient declined due to back pain. Upon entering, patient was sleeping, however easily aroused and still drowsy. Pt stated, They were giving me the wrong pain medicine, and that's why it wasn't working.
--- NOTE | 2022-03-01 10:42 | PC.NURSE ---
Call made to Neurosurgery to see if they will be seeing the pt today or if they are ok with her being discharged.
[2022-03-01 11:45] LABS: Glucose Point of Care 320 mg/dl (65-105)
[2022-03-01 12:53] LABS: Homocysteine 16.9 umol/L (<10.4)
[2022-03-01] MEDS: metFORMIN HCL 500 MG TABLET 1000 MG PO ×2 (13:02→17:33)
[2022-03-01] MEDS: oxyCODONE/ACETAMINOPHEN (*CRX) 10-325 MG TABLET 1 TAB PO ×2 (13:04→18:58)
[2022-03-01] MEDS: INSULIN ASPART (*BKC) 100 UNITS/ML SUB-Q ×2 (13:06→17:35)
[2022-03-01 15:30] VITALS: BP 113/80; PULSE 100; RESP 12; TEMP 36.6
--- NOTE | 2022-03-01 15:45 | PCNFU ---
Nutrition Follow-Up Complete: Severe malnutrition related to chronic loss of appetite, as evideced by reported weight loss, intakes <75% needs at least 6 months, severe muscle wasting and fat loss. Goal:Adequate PO intake at least 75% meals - Goal being met Pt current nutrition is Diabetic consistent carb diet with Glucerna TIF. Nutrition recommendation: Continue current diet, care plan and supplements Last recorded weight is 45.9 kg. Bowel Motility: +1 BM 03/01/22 Labs Reviewed: BUN 24, Glu 169-320 Meds Noted: Started on Remeron 7.5 at night Skin:WNL Additional Notes: Appetite improved. Discharge to SNF Monitor plan of care, intakes, weights, supplement tolerance. Follow up in 5 days
[2022-03-01 16:06] LABS: Methylmalonic Acid 246 nmol/L (87-318)
[2022-03-01 17:22] LABS: Glucose Point of Care 242 mg/dl (65-105)
--- NOTE | 2022-03-01 17:47 | WPDNEUROSGCN ---
Assessment and Plan Assessment and plan (1) Cervical stenosis of spinal canal: Code(s): M48.02 - Spinal stenosis, cervical region Status: Acute (2) Thoracic disc herniation: Code(s): M51.24 - Other intervertebral disc displacement, thoracic region Status: Acute Plan Crystal is a somewhat medically complex 56-year-old female who is admitted with mental status issues and difficulty ambulating with a recent hemoglobin A1c of more than 12 and hypoglycemia on admission. She is doing much better now. I recommend she be discharged from the hospital to follow up with me as an outpatient. Apparently she will be going to rehab. Her generalized weakness and imbalance could be multifactorial and would like for her to be in better shape medically with a much lower hemoglobin A1c before considering any surgery on her cervical spine that would likely require fusion. Review of Systems Review of Systems: Patient denies shortness of breath, cough, fever, chills, weight gain, chest pain. She has lost significant weight but this has been over a long period of time and after a gastric bypass surgery. She has malaise, depression, anxiety, generalized weakness. She at times has nausea. She denies current dysuria. She has had recent mental status changes and uncontrolled blood sugars. [facility] Past Medical History Medical History Anxiety Bipolar disorder CVA (cerebral vascular accident) Depression Diabetes mellitus Hyperlipidemia Hypertension Hypothyroidism Surgical History Surgical History History of cholecystectomy History of gastric bypass Family History Family History Father Cerebrovascular accident, Onset Age: 96 Patient's father is Mother Family history of diabetes mellitus in first degree relative Family history of malignant neoplasm of breast in first degree relative, Onset Age: 88 Patient's mother is Social History Social History Smoking packs per day: 1 Smoking cigarettes per day: 20.0 Years smoked: 24 Smoking pack-years: 24.00 Smoking status: Current every day smoker Tobacco type: cigarettes Second hand tobacco smoke exposure: No Alcohol intake: never Substance use: never Substance use type: does not use Spiritual care concerns: No Meds Home Medications and Allergies Home Medications Medication Instructions Recorded Confirmed Type metformin 1,000 mg tablet 1,000 mg PO BID 09/26/20 02/24/22 History alprazolam 2 mg tablet 2 mg PO BID 02/20/22 02/24/22 History cyclobenzaprine 10 mg tablet 10 mg PO Q8H 02/20/22 02/24/22 History dextroamphetamine-amphetamine 30 30 mg PO BID 02/20/22 02/24/22 History mg tablet insulin degludec 100 unit/mL (3 35 unit subcut DAILY 02/20/22 02/24/22 History mL) subcutaneous pen (Tresiba FlexTouch U-100 insulin) lamotrigine 150 mg tablet 150 mg PO BID 02/20/22 02/24/22 History levothyroxine 100 mcg tablet 100 mcg PO DAILY 02/20/22 02/24/22 History nitrofurantoin 100 mg PO Q12H 3 days #6 caps 02/20/22 02/24/22 Rx monohydrate/macrocrystals 100 mg capsule (Macrobid) oxcarbazepine 150 mg tablet 150 mg PO BID 02/20/22 02/24/22 History oxycodone-acetaminophen 7.5 mg-325 1 tablet PO Q8H PRN Pain 02/24/22 02/24/22 History mg tablet alprazolam 0.5 mg tablet 1 mg PO BID PRN Anxiety #4 tabs 03/01/22 Rx oxycodone-acetaminophen 10 mg-325 1 tablet PO Q8H PRN Pain Rated 03/01/22 Rx mg tablet 7-10 #9 tabs Allergies Allergy/AdvReac Type Severity Reaction Status Date / Time No Known Allergies Allergy Verified 02/23/22 22:42 Vital Signs Vital Signs - 24 hr 02/28/22 20:00 02/28/22 21:44 03/01/22 06:00 Temperature 98.3 F 97.5 F L Pulse Rate 102 H 103 H Resp
[2022-03-01 21:55] VITALS: BP 121/64; PULSE 103; RESP 24; TEMP 36.4; O2SAT 99
[2022-03-01] MEDS: MIRTAZAPINE 7.5 MG TABLET PO (22:04)
[2022-03-01 22:17] LABS: Glucose Point of Care 259 mg/dl (65-105)
[2022-03-02 05:31] VITALS: BP 126/76; PULSE 97; RESP 20; TEMP 36.6; O2SAT 100
[2022-03-02] MEDS: LEVOTHYROXINE SODIUM 100 MCG TABLET PO (05:31)
[2022-03-02] MEDS: HYDROcodone/acetaminophen (*CRX) 5-325 MG TABLET 1 TAB PO (05:31)
[2022-03-02] MEDS: metroNIDAZOLE 250 MG TABLET 500 MG PO ×2 (05:31→13:17)
[2022-03-02 08:08] LABS: Glucose Point of Care 108 mg/dl (65-105)
[2022-03-02] MEDS: INSULIN ASPART (*BKC) 100 UNITS/ML 7 UNITS SUB-Q ×3 (08:09→16:41)
[2022-03-02] MEDS: INSULIN GLARGINE (*BKC) 100 UNITS/ML 15 UNITS SUB-Q (08:09)
[2022-03-02] MEDS: OXcarbazepine 150 MG TABLET PO (08:13)
[2022-03-02] MEDS: lamoTRIgine 100 MG, lamoTRIgine 50 MG 150 MG PO (08:14)
[2022-03-02] MEDS: lisinopriL 5 MG TABLET PO (08:14)
[2022-03-02] MEDS: metFORMIN HCL 500 MG TABLET 1000 MG PO ×2 (08:15→16:38)
[2022-03-02] MEDS: HEPARIN SODIUM 5,000 UNITS/ML VIAL 5000 UNITS SUB-Q (08:15)
[2022-03-02] MEDS: SERTRALINE HCL 50 MG TABLET PO (08:15)
[2022-03-02] MEDS: SACCHAROMYCES BOULARDII 250 MG CAPSULE PO ×3 (08:15→16:38)
--- NOTE | 2022-03-02 09:30 | PM.DS ---
DS: Admitting Diagnosis Discharge Date 03/02/22929 Admitting Diagnosis Failure to thrive, weakness, depression DS: Discharge Diagnosis Discharge Diagnosis (1) Failure to thrive: Status: Acute Assessment and Plan: Etiology unclear. Per daughter, patient has had decline in overall health with decreased p.o. intake, weight loss, difficulty with mobility, frequent falls, difficulty with speech. Unclear if any underlying psychiatric factors playing a role. Pt denies drug use and tox screen negative with exception of cannabis. Spoke with PCP via phone today, reports weight loss has been a persistent issue but speech, decreased PO intake, and falls seems more acute. She has been evaluated with full body CT for possible cancer or other medical explanation for weight loss with negative results. neurology consulted Initial head CT negative for acute findings. HIV, RPR, hepatitis panel negative. Continue dietary supplements, appreciate director food safety evaluation. Continue PT/OT. Fall precautions. Awaiting SNF auth at this time (2) Depression: Code(s): F32.A - Depression, unspecified Status: Acute Assessment and Plan: Seems to be more stable at this time Severe depression could explain above symptoms. Dr. Acosta did give further recommendations and new medications has been started Per psychiatry patient has been started on Remeron 7.5 at night, Zoloft 50 mg in the morning Continued lamotrigine and Trileptal. (3) Type 2 diabetes mellitus with hypoglycemia: Code(s): E11.649 - Type 2 diabetes mellitus with hypoglycemia without coma Status: Acute Assessment and Plan: episode of hypoglycemia prior to presentation with blood sugar 37. Patient took insulin but did not eat. Has had progressively decreased p.o. intake, putting her at high risk for hypoglycemia. In fact was evaluated in ED 2 days prior for hypoglycemia, blood sugar 49 at that time. A1c is 12.4. Continue Accu-Cheks Patient is eating better and noted not following a diabetic diet blood sugars remain elevated especiallin in the evening Lantus adjusted to 15 units Q12H increased to 7 units Novolog with meals. Increase sliding scale to high dose with stricter parameters Monitor glucose trends closely. hypoglycemia protocol (4) Hypothyroidism: Code(s): E03.9 - Hypothyroidism, unspecified Status: Acute Assessment and Plan: TSH is elevated with T4 on the low end of normal and low T3 Seems likely that patient has not been taking levothyroxine consistently. At this time continue current dose 100 mcg daily. Will discuss with PCP for further recommendations regarding dosage adjustment. (5) Hypertension: Code(s): I10 - Essential (primary) hypertension Status: Acute Assessment and Plan: Current BP 185/89 24 trend appears to be showing BP 140-180 systolic Started lisinopril 5mg PO daily Continue to trend BP Adjust therapy as indicated Hydralazine as needed for elevated BP. (6) UTI (urinary tract infection): Code(s): N39.0 - Urinary tract infection, site not specified Status: Acute Assessment and Plan: Patient evaluated in ED 2 days prior to admission, UA abnormal at that time. Patient discharged with course of Macrobid, unclear if she took this. Urine culture with growth of E coli. Received 5 days of ceftriaxone Antibiotics stopped at this time. (7) Diarrhea: Code(s): R19.7 - Diarrhea, unspecified Status: Acute Assessment and Plan: Reports persistent diarrhea Could be related to current eating habits Start banatrol and probiotic C diff PCR is negative. Stool culture negative (8) Weakness: Code(s): R53.1 - Weakness Status: Acute Assessment and Plan: MRI of the cervical spine showed bulgi
--- NOTE | 2022-03-02 09:30 | P.PNIM_ITS ---
Progress Note: A&P Assessment and Plan (1) Failure to thrive: Status: Acute Assessment and Plan: * Etiology unclear. * Per daughter, patient has had decline in overall health with decreased p.o. intake, weight loss, difficulty with mobility, frequent falls, difficulty with speech. * Unclear if any underlying psychiatric factors playing a role. Pt denies drug use and tox screen negative with exception of cannabis. * Spoke with PCP via phone today, reports weight loss has been a persistent issue but speech, decreased PO intake, and falls seems more acute. She has been evaluated with full body CT for possible cancer or other medical explanation for weight loss with negative results. * neurology consulted * Initial head CT negative for acute findings. * HIV, RPR, hepatitis panel negative. * Continue dietary supplements, appreciate animal shelter worker evaluation. * Continue PT/OT. Fall precautions. * Awaiting SNF auth at this time (2) Depression: Code(s): F32.A - Depression, unspecified Status: Acute Assessment and Plan: * Seems to be more stable at this time * Severe depression could explain above symptoms. * Dr. Acosta did give further recommendations and new medications has been started * Per psychiatry patient has been started on Remeron 7.5 at night, Zoloft 50 mg in the morning * Continued lamotrigine and Trileptal. (3) Type 2 diabetes mellitus with hypoglycemia: Code(s): E11.649 - Type 2 diabetes mellitus with hypoglycemia without coma Status: Acute Assessment and Plan: * episode of hypoglycemia prior to presentation with blood sugar 37. Patient took insulin but did not eat. Has had progressively decreased p.o. intake, putting her at high risk for hypoglycemia. In fact was evaluated in ED 2 days prior for hypoglycemia, blood sugar 49 at that time. * A1c is 12.4. * Continue Accu-Cheks * Patient is eating better and noted not following a diabetic diet * blood sugars remain elevated especiallin in the evening * Lantus adjusted to 15 units Q12H * increased to 7 units Novolog with meals. * Increase sliding scale to high dose with stricter parameters * Monitor glucose trends closely. * hypoglycemia protocol * Talked to the about bring in food for her (4) Hypothyroidism: Code(s): E03.9 - Hypothyroidism, unspecified Status: Acute Assessment and Plan: * TSH is elevated with T4 on the low end of normal and low T3 * Seems likely that patient has not been taking levothyroxine consistently. * At this time continue current dose 100 mcg daily. * Will discuss with PCP for further recommendations regarding dosage adjustment. (5) Hypertension: Code(s): I10 - Essential (primary) hypertension Status: Acute Assessment and Plan: * Current BP 126/76 * 24 trend appears to be showing BP 140-180 systolic * Started lisinopril 5mg PO daily * Continue to trend BP * Adjust therapy as indicated * Hydralazine as needed for elevated BP. (6) UTI (urinary tract infection): Code(s): N39.0 - Urinary tract infection, site not specified Status: Acute Assessment and Plan: * Patient evaluated in ED 2 days prior to admission, UA abnormal at that time. * Patient discharged with course of Macrobid, unclear if she took this. * Urine culture with growth of E coli. * Received 5 days of ceftriaxone * Antibiotics s
[2022-03-02 10:27] LABS: EDCOVIDSCREEN Negative (Negative)
[2022-03-02 11:16] LABS: Glucose Point of Care 215 mg/dl (65-105)
[2022-03-02] MEDS: INSULIN ASPART (*BKC) 100 UNITS/ML SUB-Q (11:39)
[2022-03-02] MEDS: oxyCODONE/ACETAMINOPHEN (*CRX) 10-325 MG TABLET 1 TAB PO (11:45)
[2022-03-02 14:00] VITALS: BP 134/74; PULSE 111; RESP 16; TEMP 36.1; O2SAT 97
[2022-03-02 16:05] LABS: Glucose Point of Care 91 mg/dl (65-105)
== END 2022-03-02 18:35 ==
LOC: ANHED 02-24 04:44 → ANH3MEDSUR 02-24 07:59
PROVIDERS: Nurse Practitioner; Student in an Organized Health Care Education/Training Program; Admitting Provider Internal Medicine; Emergency Provider Emergency Medicine; PCP Internal Medicine; Visit Provider Physician Assistant
DX: R62.7 Adult failure to thrive (principal); F32.A Depression, unspecified; E11.649 Type 2 diabetes mellitus with hypoglycemia without coma; E03.9 Hypothyroidism, unspecified; I10 Essential (primary) hypertension; N39.0 Urinary tract infection, site not specified; R19.7 Diarrhea, unspecified; R53.1 Weakness; E11.42 Type 2 diabetes mellitus with diabetic polyneuropathy; F41.9 Anxiety disorder, unspecified; R32 Unspecified urinary incontinence; Z20.822 Contact with and (suspected) exposure to COVID-19; R29.6 Repeated falls; R63.6 Underweight; Z68.1 Body mass index [BMI] 19.9 or less, adult; R29.2 Abnormal reflex; R82.90 Unspecified abnormal findings in urine; R47.81 Slurred speech; Z90.49 Acquired absence of other specified parts of digestive tract; Z98.84 Bariatric surgery status; R00.0 Tachycardia, unspecified; F17.210 Nicotine dependence, cigarettes, uncomplicated; G95.89 Other specified diseases of spinal cord; M47.812 Spondylosis without myelopathy or radiculopathy, cervical region; M47.816 Spondylosis without myelopathy or radiculopathy, lumbar region; M41.86 Other forms of scoliosis, lumbar region; Z11.4 Encounter for screening for human immunodeficiency virus [HIV]; Z86.73 Personal history of transient ischemic attack (TIA), and cerebral infarction without residual deficits; Z79.4 Long term (current) use of insulin; Z79.84 Long term (current) use of oral hypoglycemic drugs; Z79.891 Long term (current) use of opiate analgesic; Z79.899 Other long term (current) drug therapy; Z83.3 Family history of diabetes mellitus; Z82.3 Family history of stroke
CPT/HCPCS: 36415; 70551; 71045; 72141; 72146; 72148; 80048; 80053; 80074; 81001; 82140; 82550; 82607; 82746; 82948; 83036; 83090; 83735; 83921; 84425; 84439; 84443; 84480; 85025; 85027; 86592; 86703; 87045; 87269; 87272; 87426; 87427; 87493; 96361; 96365; 96367; 96375; 97110; 97116; 97162; 97166; 97530; 97535; 99285; A9270; C9803; G0378; G0432; J0360; J0696; J1644; J1815; J3475; J7030; J7050

== ENCOUNTER 2022-04-29 15:00 | Emergency (ER) | payer BC, MEDICARE, SELFPAY ==
[2022-04-29] VITALS (18 sets, daily range): BP systolic 138–160; BP diastolic 78–87; PULSE 96–107; RESP 8–20; TEMP 37.8; O2SAT 96–99
--- NOTE | ~2022-04-29 | CT_ITS ---
EXAMINATION: CT abdomen pelvis w con INDICATION: Pelvic wounds TECHNIQUE: Computed tomographic images of the abdomen and pelvis were obtained after the administrati on of 100 cc of Omnipaque 350 intravenous contrast. The dose-length product (DLP) was 217.05 mGy-cm. Automated exposure control and iterative reconstruction technique were employed. COMPARISON: 01/01/2022 FINDINGS: Nodular and airspace opacities are present in the right lower lobe which are new since the comparison examination. There is mild atelectasis in the left lower lobe. The heart size is normal. T he gallbladder is surgically absent. There is mild enlargement of the common bile duct and central in trahepatic ducts which is likely due to post cholecystectomy state. There are surgical changes in the stomach. The liver, spleen, pancreas, and adrenal glands are normal. There are areas of intraparench ymal low attenuation in the left kidney lower pole and the right kidney upper pole. There is mild jacki ateral inguinal lymphadenopathy. Diffuse anasarca is noted. There is small volume of pelvic ascites. There is wall thickening of the cecum and ascending colon. There is a sacral decubitus ulceration whi ch is new since the comparison examination. The ulceration penetrates to the sacrum posteriorly howev er no definite associated osseous change is identified. There also appears to be a small amount of so ft tissue gas and inflammatory change in the perineum and perianal regions. There is mild lumbar spon dylosis. IMPRESSION: 1. Nodular and airspace opacities of the right lower lobe, consistent with pneumonia, possibly aspiratio n pneumonia. 2. New sacral decubitus ulceration without definite osseous involvement. 3. Probable soft tissue gas and inflammation in the perineum and perianal regions. Close clinical mon itoring is advised. 4. Areas of low attenuation in the right kidney upper pole and left kidney lower pole which could ref lect pyelonephritis. 5. Diffuse anasarca. 6. Wall thickening of the cecum and ascending colon, consistent with colitis. 7. Mild inguinal lymphadenopathy, likely reactive. Reviewed, dictated and finalized at location [facility] [employer] IMPRESSION: 1. Nodular and airspace opacities of the right lower lobe, consistent with pneumon ia, possibly aspiration pneumonia. 2. New sacral decubitus ulceration without definite osseous involvement. 3. Probable soft tissue gas and inflammation in the perineum and perianal regio ns. Close clinical monitoring is advised. 4. Areas of low attenuation in the right kidney upper pole and left kidney lowe r pole which could reflect pyelonephritis. 5. Diffuse anasarca. 6. Wall thickening of the cecum and ascending colon, consistent with colitis. 7. Mild inguinal lymphadenopathy, likely reactive.
--- NOTE | 2022-04-29 15:11 | ECG_ITS ---
Measurements Intervals [place] Rate: 96 P: 85 MD: 126 QRS: 70 QRSD: 96 T: 83 QT: 340 QTc: 430 Interpretive Statements SINUS RHYTHM WITHIN NORMAL LIMITS COMPARED TO ECG 02/20/2022 20:15:59 NO SIGNIFICANT CHANGES Electronically Signed On 04-30-2022 10:13:48 [employer] by Prieto Sr M.D.
[2022-04-29 15:31] LABS: Basophils Percent Auto 0.2 % (0.2-1.2); Eosinophils Absolute Auto 1.2 K/mm3 (0-0.3); Hematocrit 35.7 % (37.0-47.0); Hemoglobin 11.2 g/dL (12.0-15.0); Immature Granulocyte Absolute 0.15 K/mm3 (0.00-0.031); Immature Granulocyte Percent A 0.8 % (0-0.5); Lymphocytes Absolute Auto 1.46 K/mm3 (0.9-3.2); Lymphocytes Percent Auto 7.6 % (18.3-44.2); Mean Corpuscular HGB Conc 31.4 g/dl (32-36); Mean Corpuscular Hemoglobin 26.7 pg (26-34); Mean Platelet Volume 8.1 fl (7.4-10.4); Monocytes Absolute Auto 0.6 K/mm3 (0.1-0.6); Monocytes Percent Auto 3.3 % (2.6-8.5); Neutrophils Absolute Auto 15.8 K/mm3 (1.3-6.7); Neutrophils Percent Auto 82.1 % (45.5-73.1); Platelet Count Result 454 k/mm3 (150-375); Red Cell Distribution Width 13.2 % (11.5-14.5); White Blood Count 19.2 K/mm3 (4.5-10.0)
[2022-04-29 15:41] LABS: INR 1.1; Prothrombin Time 13.3 Seconds (11.1-14.7)
[2022-04-29 15:42] LABS: Partial Thromboplastin Time 31.5 SECONDS (22.3-36.8)
[2022-04-29 15:49] LABS: Alanine Aminotransferase 13 U/L (6-35); Albumin Level 3.2 g/dL (3.5-5.1); Alkaline Phosphatase 240 U/L (38-126); Anion Gap 5 mmol/L (8-16); Aspartate Amino Transferase 20 U/L (14-36); Bilirubin,Total 0.5 mg/dL (0.2-1.3); Blood Urea Nitrogen 22 mg/dL (7-17); Calcium 8.2 mg/dL (8.4-10.2); Carbon Dioxide 33 mmol/L (22-30); Chloride 97 mmol/L (98-107); Estimated Glomerular Filt Rate > 60; Glucose 128 mg/dL (65-110); Potassium 3.8 mmol/L (3.4-5.0); Sodium 135 mmol/L (137-145)
--- NOTE | 2022-04-29 17:23 | ED.GENADULT ---
HPI - General Adult General Chief complaint: Altered Mental Status Stated complaint: not responding X1 week-bed sore on bottom Time Seen by Provider: 04/29/22 16:38 History of Present Illness HPI narrative: 56-year-old cachectic female with a past medical history of poorly controlled diabetes and CVA presents for evaluation. Patient is only able to provide limited history but states she has severe pain in her vagina and her butt near where she has pressure wounds. brought patient to the ER but left immediately after dropping her off. He informed some staff members that she has been acting confused but no further history provided. On arrival patient appears cachectic and has notable wounds in the right perineum. Mucous membranes are dry and urine is quite concentrated. No further history available at this time. Related Data Home Medications Medication Instructions Recorded Confirmed metformin 1,000 mg tablet 1,000 mg PO BID 09/26/20 02/24/22 lamotrigine 150 mg tablet 150 mg PO BID 02/20/22 02/24/22 levothyroxine 100 mcg tablet 100 mcg PO DAILY 02/20/22 02/24/22 oxcarbazepine 150 mg tablet 150 mg PO BID 02/20/22 02/24/22 oxycodone-acetaminophen 7.5 mg-325 1 tablet PO Q8H PRN Pain 02/24/22 02/24/22 mg tablet Allergies Allergy/AdvReac Type Severity Reaction Status Date / Time No Known Allergies Allergy Verified 02/23/22 22:42 Review of Systems Review of Systems: CONSTITUTIONAL: Denies fever, chills, or sweats. EYES: Denies visual changes, redness, or discharge. ENT: Denies rhinorrhea, congestion, sore throat, or otalgia. CARDIOVASCULAR: Denies chest pain, palpitations, or edema. RESPIRATORY: Denies cough or dyspnea. GASTROINTESTINAL: Denies abdominal pain, nausea, vomiting, or diarrhea. GENITOURINARY: Denies dysuria or hematuria. SKIN: Denies rash or itching. MUSCULOSKELETAL: Denies back pain, joint pain, or myalgia. NEUROLOGIC: Denies headache, numbness, or weakness. PSYCHIATRIC: Denies anxiety or depression. [facility] Past Medical History Medical History Anxiety Bipolar disorder CVA (cerebral vascular accident) Depression Diabetes mellitus Hyperlipidemia Hypertension Hypothyroidism Surgical History Surgical History History of cholecystectomy History of gastric bypass Family History Family History Father Cerebrovascular accident, Onset Age: 96 Patient's father is Mother Family history of diabetes mellitus in first degree relative Family history of malignant neoplasm of breast in first degree relative, Onset Age: 88 Patient's mother is Social History Social History Smoking packs per day: 1 Smoking cigarettes per day: 20.0 Years smoked: 24 Smoking pack-years: 24.00 Smoking status: Current every day smoker Tobacco type: cigarettes Second hand tobacco smoke exposure: No Alcohol intake: never Substance use: never Substance use type: does not use Spiritual care concerns: No Exam Narrative: GENERAL: Well-appearing, well-nourished, and in moderate distress. Cachectic, crying HEAD: Normocephalic, atraumatic. EYES: PERRLA and EOMI. ENT: Nares clear, no rhinorrhea or epistaxis. Mucous membranes moist. NECK: Supple. CHEST: Clear to auscultation. No respiratory distress. HEART: Regular rate and rhythm. No murmur heard. Normal peripheral pulses. ABDOMEN: Soft, nontender, nondistended, normal active bowel sounds. EXTREMITIES: Normal range of motion. No edema. SKIN: Warm, dry, no rash. Wound noted to the inferior right labia/perenium, right sacrum, erythema, fluctuance and edema noted around wounds of the perineum NEURO: No focal deficits. Alert and oriented x3. PSYCH: Normal mood and affect. Course Vital Signs
[2022-04-29] MEDS: SODIUM CHLORIDE 0.9% IV 1,000 ML 999 ML IV CONT (17:24)
[2022-04-29] MEDS: SODIUM CHLORIDE 0.9% IV 500 ML 999 ML IV CONT (17:29)
[2022-04-29 17:39] LABS: Lactic Acid Reflex 1.4 mmol/L (0.7-2.0)
[2022-04-29 17:41] LABS: Add Urine Microscopic? YES; Appearance Urine Cloudy (Clear); Bilirubin Urine Negative (Negative); Blood Urine Trace-Intact (Negative); Color Urine Yellow (Yellow); Glucose Urine UA 3+ mg/dL (Negative); Ketones Urine Negative (Negative); Leukocyte Esterase Ur Negative LEU/UL (Negative); Nitrate Urine Positive (Negative); Protein Urine 1+ mg/dL (Negative); Specific Grav Ur >= 1.030 (1.001-1.035)
[2022-04-29 17:47] LABS: Bacteria Urine 4+ /hpf; Mucus Urine Heavy /lpf
[2022-04-29 18:00] LABS: CRP 15.7 mg/dL (<1.0)
[2022-04-29 18:22] LABS: Influenza A QL RT-PCR Negative (Negative); Influenza B QL RT-PCR Negative (Negative); SARS-CoV-2 RNA PCR Negative
--- NOTE | 2022-04-29 19:48 | PM.IMHP ---
H&P: HPI History of Present Illness Date/Time: 04/29/22 19:48 [facility] Past Medical History Medical History Anxiety Bipolar disorder CVA (cerebral vascular accident) Depression Diabetes mellitus Hyperlipidemia Hypertension Hypothyroidism Surgical History Surgical History History of cholecystectomy History of gastric bypass Family History Family History Father Cerebrovascular accident, Onset Age: 96 Patient's father is Mother Family history of diabetes mellitus in first degree relative Family history of malignant neoplasm of breast in first degree relative, Onset Age: 88 Patient's mother is Social History Social History Smoking packs per day: 1 Smoking cigarettes per day: 20.0 Years smoked: 24 Smoking pack-years: 24.00 Smoking status: Current every day smoker Tobacco type: cigarettes Second hand tobacco smoke exposure: No Alcohol intake: never Substance use: never Substance use type: does not use Spiritual care concerns: No Meds Home Medications and Allergies Home Medications Medication Instructions Recorded Confirmed Type metformin 1,000 mg tablet 1,000 mg PO BID 09/26/20 02/24/22 History lamotrigine 150 mg tablet 150 mg PO BID 02/20/22 02/24/22 History levothyroxine 100 mcg tablet 100 mcg PO DAILY 02/20/22 02/24/22 History oxcarbazepine 150 mg tablet 150 mg PO BID 02/20/22 02/24/22 History oxycodone-acetaminophen 7.5 mg-325 1 tablet PO Q8H PRN Pain 02/24/22 02/24/22 History mg tablet Saccharomyces boulardii 250 mg 250 mg PO TID #90 caps 03/01/22 Rx capsule (Florastor) alprazolam 0.5 mg tablet 1 mg PO BID PRN Anxiety #4 tabs 03/01/22 Rx camphor 4 %-methyl salicylate 30 1 applic topical BID PRN 03/01/22 Rx %-menthol 10 % topical cream Muscle/Joint Pain #113 grams (Bengay Ultra Strength) insulin aspart U-100 100 unit/mL 7 unit (0.07 mL) subcut TIDWM #10 03/01/22 Rx subcutaneous solution (Novolog mL U-100 Insulin aspart) insulin aspart U-100 100 unit/mL See Protocol subcut TIDWM PRN 03/01/22 Rx subcutaneous solution (Novolog hyperglycemia #10 mL U-100 Insulin aspart) insulin glargine 100 unit/mL 15 unit (0.15 mL) subcut Q12HR #10 03/01/22 Rx subcutaneous solution (Lantus mL U-100 Insulin) lisinopril 5 mg tablet 5 mg PO QAM #30 tabs 03/01/22 Rx mirtazapine 15 mg tablet (Remeron) 7.5 mg PO HS #30 tabs 03/01/22 Rx nicotine 21 mg/24 hr daily 1 patch transdermal QAM PRN 03/01/22 Rx transdermal patch (Nicoderm CQ) smoking cessation #30 ea oxycodone-acetaminophen 10 mg-325 1 tablet PO Q8H PRN Pain Rated 03/01/22 Rx mg tablet 7-10 #9 tabs sertraline 50 mg tablet (Zoloft) 50 mg PO QAM #30 tabs 03/01/22 Rx Allergies Allergy/AdvReac Type Severity Reaction Status Date / Time No Known Allergies Allergy Verified 02/23/22 22:42 Vital Signs Vital Signs - 24 hr 04/29/22 15:07 04/29/22 17:31 Temperature 100.1 F H Pulse Rate 100 102 H Respiratory Rate 20 14 Blood Pressure 139/82 146/82 H Pulse Oximetry 99 97 H&P: Results Labs Labs: Short CBC 04/29/22 Range/Units 15:20 WBC 19.2 H (4.5-10.0) K/mm3 Hgb 11.2 L (12.0-15.0) g/dL Hct 35.7 L (37.0-47.0) % Plt Count 454 H (150-375) k/mm3 BMP 04/29/22 15:20 Sodium 135 L Potassium 3.8 Chloride 97 L Carbon Dioxide 33 H BUN 22 H Creatinine 0.70 Glucose 128 H Calcium 8.2 L Liver Function 04/29/22 Range/Units 15:20 Total Bilirubin 0.5 (0.2-1.3) mg/dL AST 20 (14-36) U/L ALT 13 (6-35) U/L Alkaline Phosphatase 240 H (38-126) U/L Albumin 3.2 L (3.5-5.1) g/dL Urine 04/29/22 Range/Units 17:19 Urine Color Yellow (Yellow) Urine Appearance Cloudy H (
--- NOTE | 2022-04-29 20:51 | PC.NURSE ---
called and discussed POC Verbal give with monorail charger operator as witness
== END 2022-04-29 21:15 | disposition short-term general hospital (02) ==
PROVIDERS: Emergency Provider Emergency Medicine; PCP Internal Medicine
DX: A41.9 Sepsis, unspecified organism (principal); N76.82 Fournier disease of vagina and vulva; J18.9 Pneumonia, unspecified organism; E86.0 Dehydration; Z20.822 Contact with and (suspected) exposure to COVID-19; L89.159 Pressure ulcer of sacral region, unspecified stage; E11.622 Type 2 diabetes mellitus with other skin ulcer; E78.5 Hyperlipidemia, unspecified; I10 Essential (primary) hypertension; E03.9 Hypothyroidism, unspecified; F41.9 Anxiety disorder, unspecified; F17.210 Nicotine dependence, cigarettes, uncomplicated; F31.9 Bipolar disorder, unspecified; Z86.73 Personal history of transient ischemic attack (TIA), and cerebral infarction without residual deficits; Z79.84 Long term (current) use of oral hypoglycemic drugs; Z79.4 Long term (current) use of insulin; R60.1 Generalized edema; R93.3 Abnormal findings on diagnostic imaging of other parts of digestive tract
CPT/HCPCS: 36415; 51701; 74177; 80053; 81001; 83605; 84145; 85025; 85610; 85730; 86140; 87040; 87636; 93005; 96365; 96366; 96367; 99285; J2543; J3370; J7030; J7040; Q9967